=== PATIENT | male | born 1940 | race African-American/Black ===

== ENCOUNTER 2023-04-15 06:55 | Observation (INO) | payer MEDICARE, SELFPAY ==
--- NOTE | ~2023-04-15 | CT_ITS ---
CT of the Abdomen and Pelvis: Indication: Abdominal pain Technique: 2.5 mm axial scans were obtained through the abdomen and pelvis following intravenous adm inistration of 100 cc of Omnipaque 350. Dose reduction technique was used on this scan by utilizing a utomated exposure control and iterative reconstruction technique. The dose-length product (DLP) was 4 66.83 mGy-cm. Findings: Scans through the lung bases demonstrate small hiatal hernia. The liver, spleen, pancreas, gallbladder, adrenals and kidneys are within normal limits. Infrarenal a bdominal aortic aneurysm measures 4.9 cm in maximum diameter. Left common iliac artery measures 1.9 c m in diameter. Right common iliac artery measures 2.0 cm in diameter.. No lymphadenopathy. No bowel obstruction or bowel wall thickening. There is no evidence to suggest acute appendicitis. Images through the pelvis were performed. Urinary bladder unremarkable. Prostate gland is enlarged. N o ascites. Impression: 4.9 cm infrarenal aortic aneurysm. Enlarged prostate gland. Small hiatal hernia. Reviewed, dictated and finalized at location . Impression: 4.9 cm infrarenal aortic aneurysm. Enlarged prostate gland. Small hiatal hernia.
[2023-04-15 06:59] VITALS: BP 184/80; PULSE 90; RESP 16; TEMP 36.8; O2SAT 94
[2023-04-15 07:30] VITALS: BP 178/61; PULSE 77; RESP 18; O2SAT 100
--- NOTE | 2023-04-15 07:35 | ED.NAVMDI ---
HPI - Nausea/Vomiting/Diarrhea General Chief complaint: Nausea/Vomiting/Diarrhea Stated complaint: vomiting Time Seen by Provider: 04/15/23 07:19 Source: patient and RN notes reviewed Mode of arrival: ambulatory Limitations: no limitations History of Present Illness HPI Narrative: This is an 83 year old male with history of hypertension who presents for evaluation of nausea, vomiting and diarrhea. Patient states yesterday he develop nausea, vomiting and diarrhea. HE reports multiple episodes of emesis. HE also reports mid abdominal pain that started at the same time. He denies fever or chills. HE denies any urinary symptoms. He states this pain does not radiate. He rates his pain 7/10 but he states he does not want any pain medication at this time. Related Data Home Medications Medication Instructions Recorded Confirmed amlodipine 10 mg BYMOUTH DAILY 04/15/23 04/15/23 lisinopril 40 mg tablet 40 mg PO DAILY 04/15/23 04/15/23 Allergies Allergy/AdvReac Type Severity Reaction Status Date / Time No Known Allergies Allergy Verified 04/15/23 15:34 Review of Systems Constitutional: Constitutional: Denies weakness Cardiovascular: Cardiovascular: Denies syncope, Denies rapid heart rate, Denies irregular heart rhythm, Denies leg edema and Denies dyspnea Respiratory: Respiratory: Denies chest congestion, Denies hemoptysis, Denies excessive phlegm production and Denies dyspnea Gastrointestinal: Gastrointestinal: Reports abdominal pain, Denies hematochezia, Reports diarrhea, Reports nausea and Reports vomiting Genitourinary: Genitourinary: Denies hematuria, Denies dysuria, Denies penile discharge and Denies testicular pain Musculoskeletal: Musculoskeletal: Denies joint swelling, Denies loss of height and Denies muscle weakness Neurologic: Reports dizziness, Denies syncope, Denies focal weakness and Denies weakness PMFSH Past Medical History Medical History (Updated 04/15/23 @ 18:01 by Estefany Melendrez MD) Hypertension Surgical History Surgical History (Updated 04/15/23 @ 07:36 by Estefany Melendrez MD) History of surgery on arm Social History Social History Smoking status: Never smoker Alcohol intake: never Substance use: never Lack of Transportation: No Lack of Food: Never True Current Housing: I Have Housing Concerned About Future Housing: No Difficulty Paying Gas/Electric Bills: No Difficulty Paying for Meds: No Currently Unemployed: No Education: Don't Know Difficulty w/ Childcare or Family Care: No Spiritual care concerns: No Exam Const: General: no acute distress and alert Orientation/consciousness: patient oriented x3 Limitations: no limitations HENMT: Face and sinus: normal facial exam Eyes: Pupils: Equal, round and reactive pupils present EOM: EOMs intact bilaterally Chest: Chest palpation & inspection: normal inspection of the chest Resp: Effort & Inspection: normal respiratory effort Auscultation: clear to auscultation bilaterally Cardio: Rate: regular rate Rhythm: regular rhythm Heart sounds: Murmur heart sound present GI: GI Palp: Yes Soft to palpation, Yes Tenderness to palpation present (GI) (RLQ suprapubic), No Guarding due to palpation present (GI) and No Rigid due to palpation Auscultation: normal bowel sounds : General: Yes no CVA tenderness Skin: General skin exam: normal color Rashes: no rashes Wounds: no wounds Neuro: General: patient oriented x3, moves all extremities and CN's II-XI intact bilaterally Extrem: General: normal to inspection Psych: Mental Status: mental status grossly normal Affect: normal affect Attitude: cooperative Course Reevaluation(s) Reevaluation #1: Patient has had multiple episodes of nausea and vomiting despite medication. He has been offered pain medication but repeatedly refused. He is finally agreeable. I discussed that I also recommend admission and he states he does not want to. Date: 04/15/23
[2023-04-15] MEDS: ONDANSETRON INJ 4 MG/2 ML VIAL IV PUSH ×2 (07:57→10:47)
[2023-04-15] MEDS: LACTATED RINGERS 1,000 ML 999 ML IV CONT (07:57)
[2023-04-15 08:16] LABS: Basophils Percent Auto 0.2 % (0.2-1.2); Hematocrit 42.4 % (42.0-52.0); Hemoglobin 14.5 g/dL (14.0-18.0); Immature Granulocyte Absolute 0.02 K/mm3 (0.00-0.031); Immature Granulocyte Percent A 0.2 % (0-0.5); Lymphocytes Absolute Auto 0.52 K/mm3 (0.9-3.2); Lymphocytes Percent Auto 5.8 % (18.3-44.2); Mean Corpuscular HGB Conc 34.2 g/dl (32-36); Mean Corpuscular Hemoglobin 31.5 pg (26-34); Mean Platelet Volume 10.5 fl (7.4-10.4); Monocytes Absolute Auto 0.6 K/mm3 (0.1-0.6); Monocytes Percent Auto 6.5 % (2.6-8.5); Neutrophils Absolute Auto 7.9 K/mm3 (1.3-6.7); Neutrophils Percent Auto 87.3 % (45.5-73.1); Platelet Count Result 292 k/mm3 (150-375); Red Blood Count 4.61 M/mm3 (4.6-6.20); Red Cell Distribution Width 15.4 % (11.5-14.5)
[2023-04-15 09:08] LABS: Alanine Aminotransferase 23 U/L (6-50); Alkaline Phosphatase 75 U/L (38-126); Anion Gap 6 mmol/L (8-16); Aspartate Amino Transferase 35 U/L (17-59); Bilirubin,Total 0.6 mg/dL (0.2-1.3); Blood Urea Nitrogen 19 mg/dL (9-20); Calcium 8.9 mg/dL (8.4-10.2); Carbon Dioxide 28 mmol/L (22-30); Chloride 104 mmol/L (98-107); Estimated CRCL calculation 47 ml/min; Estimated Glomerular Filt Rate > 60; Glucose 110 mg/dL (65-110); Lipase 118 U/L (23-300); Potassium 4.1 mmol/L (3.4-5.0); Sodium 138 mmol/L (137-145)
[2023-04-15 09:10] LABS: Appearance Urine Cloudy (Clear); Bacteria Urine 4+ /hpf; Bilirubin Urine Negative (Negative); Blood Urine 2+ (Negative); Color Urine Yellow (Yellow); Glucose Urine UA Negative (Negative); Ketones Urine Negative (Negative); Leukocyte Esterase Ur 2+ LEU/UL (Negative); Nitrate Urine Negative (Negative); Non Pathogenic Casts 0-2; Protein Urine 1+ mg/dL (Negative); RBC Urine 21-50 /hpf (0-2); Specific Grav Ur 1.016 (1.001-1.035); Squamous Epithelial Cell Urine Occasional /hpf (Few)
[2023-04-15 09:20] LABS: Add Urine Microscopic? YES
[2023-04-15] MEDS: METOCLOPRAMIDE HCL INJ 10 MG/2 ML VIAL IV PUSH (09:28)
[2023-04-15 11:22] VITALS: BP 162/65; PULSE 101; RESP 18; O2SAT 100
[2023-04-15] MEDS: MORPHINE SULFATE (*CRX) 4 MG/ML INJ IV PUSH (12:05)
[2023-04-15 14:00] VITALS: BP 137/63; PULSE 93; RESP 20; O2SAT 96
[2023-04-15] MEDS: SODIUM CHLORIDE 0.9% IV 1,000 ML 125 ML IV CONT ×2 (14:47→23:27)
[2023-04-15 15:17] VITALS: BMI 22.2
--- NOTE | 2023-04-15 15:24 | ADMGEN ---
This patient, Ceferino Hampton, was admitted to [facility] Surg Room 316-02. Patient/family oriented to hospital policies and general routines including ID bracelet, bed and alarms, visiting hours, pain management, procedures, bathroom and other care routines, personal items, smoking policy, room service/diet, and visiting hours. Information on how to activate the Rapid Response Team has been discussed. Patient/Family are encouraged to report perceived risks to care and to ask questions if they do not understand what they are told or what they should do. Report from A[place]ley in ER.
[2023-04-15 16:01] VITALS: BP 129/53; PULSE 73; RESP 16; TEMP 37.3; O2SAT 97
[2023-04-15 21:29] VITALS: BP 161/62; PULSE 74; RESP 14; TEMP 36.8; O2SAT 96
--- NOTE | 2023-04-15 21:41 | PM.IMHP ---
H&P: HPI History of Present Illness Date/Time: 04/15/23 21:41 Chief Complaint: Nausea vomiting diarrhea Narrative: This is an 83-year-old male patient who has a history of hypertension. The patient came in to be evaluated with nausea vomiting and diarrhea. The patient stated a couple weeks ago he had diarrhea in it. Today came back yesterday. He has also had severe abdominal pain. He denies any fever chills. He denies any urinary symptoms. The pain does not radiate anywhere but he was rating his pain 7/10. CT of the abdomen and pelvis was read as the following.4.9 cm infrarenal aortic aneurysm. Enlarged prostate gland. Small hiatal hernia. Patient was found to be positive for UTI. The patient was given Rocephin. He was also given IV fluids. His mucous membranes are moist. When I system he stated he was feeling much better. The patient is being admitted for observation status on the date of service of 04/15/2023. Review of Systems Review of Systems: All systems reviewed & are unremarkable except as noted in HPI and below Constitutional: Constitutional: Reports as per HPI and Reports no additional constitutional complaints Eyes: Eyes: Reports as per HPI and Reports no additional eye complaints ENT: Reports system reviewed and no additional complaints, except as documented and Reports Normal hearing present Cardiovascular: Cardiovascular: Reports no additional cardiovascular complaints Respiratory: Respiratory: Reports no additional respiratory complaints and Reports no additional respiratory complaints Gastrointestinal: Gastrointestinal: Reports as per HPI and Reports no additional gastrointestinal complaints Musculoskeletal: Musculoskeletal: Reports no additional musculoskeletal complaints Integumentary/Breasts: Skin/Breast: Reports system reviewed and no additional complaints, except as docu and Reports as per HPI Neurologic: Reports system reviewed and no additional complaints, except as documented, Reports as per HPI and Reports Normal hearing present Psychiatric: Psychiatric: Reports no additional psychiatric complaints and Reports as per HPI Endocrine: Endocrine: Reports no additional endocrine complaints Hematologic/Lymphatic: Hematologic/Lymphatic: Reports no additional hematologic/lymphatic complaints Allergic/Immunologic: Allergic/Immunologic: Reports no additional allergic/immunologic complaints [facility] Past Medical History Medical History (Updated 04/15/23 @ 23:28 by Светлана Davila NP) Abdominal aneurysm CVA (cerebral vascular accident) Hypertension Surgical History Surgical History History of surgery on arm Family History Family History (Updated 04/15/23 @ 23:25 by Светлана Davila NP) Other Hypertension Social History Social History (Updated 04/15/23 @ 23:25 by Светлана Davila NP) Social History: The patient lives with his cousins. 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 Code status full code Smoking status: Never smoker Alcohol intake: never Substance use: never Lack of Transportation: No Lack of Food: Never True Current Housing: I Have Housing Concerned About Future Housing: No Difficulty Paying Gas/Electric Bills: No Difficulty Paying for Meds: No Currently Unemployed: No Education: Don't Know Difficulty w/ Childcare or Family Care: No Spiritual care concerns: No Meds Home Medications and Allergies Home Medications Medication Instructions Recorded Confirmed Type amlodipine 10 mg BYMOUTH DAILY 04/15/23 04/15/23 History lisinopril 40 mg tablet 40 mg PO DAILY 04/15/23 04/15/23 History Allergies Allergy/AdvReac Type Severity Reaction Status Date / Time No Known Allergies Allergy Verified 04/15/23 15:34 Vital Signs Vital Signs - 24 hr 04/15/23 06:59 04/15/23 07:30 04/15/23 11:22 Temperature 36.8 C Pulse Rate 90 77 101 H Respira
[2023-04-16 05:56] VITALS: BP 162/53; PULSE 57; RESP 12; TEMP 37.1; O2SAT 97
[2023-04-16 06:42] LABS: Basophils Percent Auto 0.2 % (0.2-1.2); Eosinophils Percent Auto 0.1 % (0-4.4); Hematocrit 33.8 % (42.0-52.0); Hemoglobin 11.3 g/dL (14.0-18.0); Immature Granulocyte Absolute 0.07 K/mm3 (0.00-0.031); Immature Granulocyte Percent A 0.5 % (0-0.5); Lymphocytes Absolute Auto 0.77 K/mm3 (0.9-3.2); Lymphocytes Percent Auto 5.5 % (18.3-44.2); Mean Corpuscular HGB Conc 33.4 g/dl (32-36); Mean Corpuscular Hemoglobin 31.7 pg (26-34); Mean Corpuscular Volume 94.9 fl (80-100); Mean Platelet Volume 9.4 fl (7.4-10.4); Monocytes Absolute Auto 1.1 K/mm3 (0.1-0.6); Neutrophils Absolute Auto 11.9 K/mm3 (1.3-6.7); Neutrophils Percent Auto 85.7 % (45.5-73.1); Platelet Count Result 157 k/mm3 (150-375); Red Blood Count 3.56 M/mm3 (4.6-6.20); Red Cell Distribution Width 15.8 % (11.5-14.5); White Blood Count 13.9 K/mm3 (4.5-10.0)
[2023-04-16 06:58] LABS: Alanine Aminotransferase 17 U/L (6-50); Alkaline Phosphatase 52 U/L (38-126); Anion Gap 5 mmol/L (8-16); Aspartate Amino Transferase 31 U/L (17-59); Bilirubin,Total 0.9 mg/dL (0.2-1.3); Blood Urea Nitrogen 17 mg/dL (9-20); Calcium 7.6 mg/dL (8.4-10.2); Carbon Dioxide 25 mmol/L (22-30); Chloride 109 mmol/L (98-107); Estimated CRCL calculation 46 ml/min; Estimated Glomerular Filt Rate > 60; Glucose 92 mg/dL (65-110); Potassium 3.9 mmol/L (3.4-5.0); Sodium 139 mmol/L (137-145)
[2023-04-16] MEDS: SODIUM CHLORIDE 0.9% IV 1,000 ML 125 ML IV CONT (07:37)
[2023-04-16] MEDS: FAMOTIDINE 20 MG/2 ML VIAL IV PUSH (09:06)
[2023-04-16] MEDS: lisinopriL 20 MG TABLET 40 MG PO (09:07)
[2023-04-16] MEDS: amLODIPine BESYLATE 5 MG TABLET 10 MG BY MOUTH (09:07)
[2023-04-16] MEDS: TAMSULOSIN HCL 0.4 MG CAPSULE PO (09:07)
[2023-04-16 10:01] VITALS: O2SAT 97
--- NOTE | 2023-04-16 12:05 | PM.DS ---
DS: Admitting Diagnosis Discharge Date April 16, 2023 Admitting Diagnosis UTI DS: Discharge Diagnosis Discharge Diagnosis (1) Intractable nausea and vomiting: Code(s): R11.2 - Nausea with vomiting, unspecified Status: Acute Assessment and Plan: The patient was started on Pepcid. The patient stated that he feels much better now. The patient was started on IV fluids and given antibiotics for UTI. (2) Acute UTI: Code(s): N39.0 - Urinary tract infection, site not specified Status: Acute Assessment and Plan: Blood and urine cultures are pending. Continue with Rocephin. (3) Hypertension: Code(s): I10 - Essential (primary) hypertension Status: Acute Assessment and Plan: Continue with amlodipine and lisinopril. Continue to monitor renal functions. (4) CVA (cerebral vascular accident): Code(s): I63.9 - Cerebral infarction, unspecified Status: Acute Assessment and Plan: The patient stated that the only residual he has difficulty speaking at times and has some ataxia. (5) Abdominal aneurysm: Code(s): I71.40 - Abdominal aortic aneurysm, without rupture, unspecified Status: Acute Assessment and Plan: 4.9 cm infrarenal aortic aneurysm. Enlarged prostate gland. Small hiatal hernia. The patient was started on Flomax. I explained to the patient that he will need to follow-up outpatient with either his primary care doctor or with the vascular surgeon to monitor that aortic aneurysm. DS: Summary Hospital Course Hospital Course: Admitted for nausea and vomiting secondary to UTI. Much better now. Oral antibiotics on discharge. Time Spent with Patient Time attestation: Total time spent providing and/or coordinating discharge services: Exam Const: General: cooperative, healthy appearing, comfortable, no acute distress, well developed, awake, Physically active, average body habitus and well nourished Nutritional Appearance: average body habitus and well nourished Orientation/consciousness: oriented to person, oriented to place, oriented to time and patient oriented x3 Limitations: no limitations HENMT: Head: normal to inspection, No palpable skull fracture present, normocephalic and atraumatic Ears: hearing grossly normal bilaterally and external ears normal Face/Nose/Sinus: Normal external nose present and Normal nares present Eyes: General: appearance normal, both eyes and all related structures Alignment and Position: alignment normal Periorbital: periorbital findings normal Eyelids: eyelids normal Sclera: sclerae normal Pupils: Equal, round and reactive pupils present EOM: EOMs intact bilaterally Neck: Neck: normal visual inspection, full ROM, no lymphadenopathy, trachea midline and supple Chest: Chest palpation & inspection: normal inspection of the chest Resp: Effort & Inspection: normal respiratory effort Auscultation: clear to auscultation bilaterally Cardio: Palpation: normal PMI Rate: regular rate Rhythm: regular rhythm Heart sounds: S1 normal heart sound present and S2 normal heart sound present Peripheral pulses: Peripheral pulses 2+ throughout GI: Inspection: normal to inspection Auscultation: normal bowel sounds Rectal Exam: deferred Back/Spine/Pelvis: Cervical Spine: cervical ROM normal Skin: General skin exam: normal color Lesions: no lesions Rashes: no rashes Trauma: no lacerations or abrasions Wounds: no wounds Hair: normal Nails: normal Neuro: General: oriented to person, oriented to place, oriented to time and patient oriented x3 Cranial nerves: Yes Equal, round and reactive pupils present and Yes Normal hearing present Cognition (Neuro): normal cognition Speech: normal speech Motor exam (neuro): 5/5 motor strength present throughout Sensory Exam: normal sensation Extrem: General: normal to inspection Right upper extremity: normal to inspection and shoulder/upper arm Left upper extremity: normal
== END 2023-04-16 13:35 | disposition home or self-care (01) ==
LOC: ANHED 08:03 → ANH3MEDSUR 14:26
PROVIDERS: Admitting Provider Chiropractor; Emergency Provider General Practice; Visit Provider Chiropractor
DX: R11.2 Nausea with vomiting, unspecified (principal); N39.0 Urinary tract infection, site not specified; B96.20 Unspecified Escherichia coli [E. coli] as the cause of diseases classified elsewhere; I69.393 Ataxia following cerebral infarction; I69.328 Other speech and language deficits following cerebral infarction; I10 Essential (primary) hypertension; I71.43 Infrarenal abdominal aortic aneurysm, without rupture; N40.0 Benign prostatic hyperplasia without lower urinary tract symptoms; K44.9 Diaphragmatic hernia without obstruction or gangrene; Z79.899 Other long term (current) drug therapy; Z82.49 Family history of ischemic heart disease and other diseases of the circulatory system
CPT/HCPCS: 36415; 74177; 80053; 81001; 83605; 83690; 85025; 87040; 87077; 87086; 87186; 96361; 96365; 96375; 96376; 99285; A9270; G0378; J0696; J2270; J2405; J2765; J7030; J7120; Q9967

== ENCOUNTER 2024-07-24 16:11 | Emergency (ER) | payer OTHER, SELFPAY ==
--- NOTE | 2024-07-24 16:18 | ED_ITS ---
HPI - General Adult General Chief complaint: Urogenital-Male Stated complaint: UTI/FALL Time Seen by Provider: 07/24/24 16:19 Source: patient Mode of arrival: ambulatory Limitations: no limitations History of Present Illness HPI narrative: 84-year-old male patient presents to the [facility] with complaints of right knee pain after fall 2 days ago and concerns for urinary tract infection symptoms. Caregiver states that earlier this year he was hospitalized for a UTI and admitted to the hospital for IV antibiotics. Patient states he has been having issues starting his stream and is not able to provide a specimen at this time. Patient did urinate right before they left the house to come to the [facility] but cannot say whether not he has fully emptied his bladder. Patient states he has not had his prostate checked in over 35 years. Patient states he has been feeling more weaker than normal as well as has had some lower back pain. Denies fevers body aches or chills at this time. Caregiver states that he is confused at times. Related Data Home Medications Medication Instructions Recorded Confirmed amlodipine 10 mg BYMOUTH DAILY 04/15/23 04/15/23 lisinopril 40 mg tablet 40 mg PO DAILY 04/15/23 04/15/23 Allergies Allergy/AdvReac Type Severity Reaction Status Date / Time No Known Allergies Allergy Verified 07/24/24 16:51 Review of Systems Review of Systems: CONSTITUTIONAL: Denies fever, chills, or sweats. EYES: Denies visual changes, redness, or discharge. ENT: Denies rhinorrhea, congestion, sore throat, or otalgia. CARDIOVASCULAR: Denies chest pain, palpitations, or edema. RESPIRATORY: Denies cough or dyspnea. GASTROINTESTINAL: Denies abdominal pain, nausea, vomiting, or diarrhea. Positive low back pain GENITOURINARY: positive dysuria positive hematuria. SKIN: Denies rash or itching. MUSCULOSKELETAL: Denies back pain, joint pain, or myalgia. NEUROLOGIC: Denies headache, numbness, positive weakness. positive confusion PSYCHIATRIC: Denies anxiety or depression. [facility] Past Medical History Medical History Abdominal aneurysm CVA (cerebral vascular accident) Hypertension Surgical History Surgical History History of surgery on arm Family History Family History Other Hypertension Social History Social History Social History: The patient lives with his cousins. 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 Code status full code Smoking status: Never smoker Alcohol intake: never Substance use: never Lack of Transportation: No Lack of Food: Never True Current Housing: I Have Housing Concerned About Future Housing: No Difficulty Paying Gas/Electric Bills: No Difficulty Paying for Meds: No Currently Unemployed: No Education: Don't Know Difficulty w/ Childcare or Family Care: No Spiritual care concerns: No Comments At the time of my signature I agree with nursing past medical history, surgical, social, and family history. There is no relevant family history pertinent to the presenting complaint. Exam Narrative: GENERAL: Well-appearing, well-nourished, and in no acute distress. HEAD: Normocephalic, atraumatic. EYES: PERRLA and EOMI. ENT: Nares clear, no rhinorrhea or epistaxis. Mucous membranes moist. NECK: Supple. No lymphadenopathy CHEST: Clear to auscultation. No respiratory distress. HEART: Regular rate and rhythm. No murmur heard. Normal peripheral pulses. ABDOMEN: Soft, flat, nondistended. No guarding, rebound tenderness, or rigid. No pulsatilla masses. Bowel sounds present in all four quadrants. No organomegaly. Negative Franks?s sign. periumbicial tenderness. No Supra public tenderness or distension. Good femoral pulses bilaterally. No hernia noted. No scars or surface trauma. bilateral CVA tenderness on percussion EXTREMITIES: Patient is able to bear weight and ambulate with a walker. No surface trauma, STS, or obvious effusion. No overlying erythema or warmth. The R knee is without obvious asymmetry or deformity when compared to the L knee. Patient is able to do deep knee bend with symmetry, fully extend knee, internal and external rotation. No tenderness to palpation of the patella, no effusion or ballottement. there is bruising present to the medial side of the right knee.No tenderness over the infrapatellar tendon. No tenderness over the medial or lateral joint lone ot the medial or lateral tibial plateaus. no tenderness over the proximal fibular head. no tenderness, fullness, or mass of the popliteal fossa. No quadriceps tenderness. No laxity of the ACL, PCL, MCL, or LCL. No collateral ligament laxity to valgus or vargus stress. Negative prasanth/drawer sign. Negative Subhash. Negative Apley compression and/or distraction. Distal motor and neurovascular status intact. SKIN: Warm, dry, no rash. NEURO: No focal deficits. Alert and oriented x3. Course Course Level of Care: Express Care Visit Vital Signs Vital signs: Vital Signs Temperature 36.9 C 07/24/24 16:27 Pulse Rate 70 07/24/24 16:27 Respiratory Rate 16 07/24/24 16:27 Blood Pressure 139/61 07/24/24 16:27 Pulse Oximetry 98 07/24/24 16:27 Temperature 36.9 C 07/24/24 16:27 Pulse Rate 70 07/24/24 16:27 Respiratory Rate 16 07/24/24 16:27 Blood Pressure 139/61 07/24/24 16:27 Pulse Oximetry 98 07/24/24 16:27 Vital signs reviewed. The patient has been informed that they may have pre-hypertension or Hypertension based on a BP reading in the department. I recommend that the patient call the primary care provider listed on their discharge instructions or a physician of their choice this week to arrange follow up for further evaluation of possible pre-hypertension or Hypertension Transfer Transfered to: [place] Transportation: Other ( Private vehicle with caregiver) Transfer rationale: further workup for possible urosepsis Accepting physician: Dr. Sparrow Medical Decision Making [facility] Narrative Medical decision making narrative: Given patient's age, history of urosepsis in the past as well as he is not able to provide us a specimen today and the increase in weakness and a fall 2 days ago I think that we need to have him better assessed in the ER where they were able to do cultures and blood work as well as have the ability to provide IV antibiotics. Patient and caregiver are aware and agree to this plan of care. Caregiver has opted for patient be seen at [place] [facility]. Differential Diagnosis Differential Diagnosis: Differential diagnosis: Uncomplicated lower UTI, uncomplicated UTI, polynephritis, penile trauma,balanoposthitis, phimosis, paraphimosis, testicular torsion, epididymitis, prostatitis, varicocele, spermatocele, hydrocele, hernia. Vital Signs Vital Signs: Vital Signs Temperature 36.9 C 07/24/24 16:27 Pulse Rate 70 07/24/24 16:27 Respiratory Rate 16 07/24/24 16:27 Blood Pressure 139/61 07/24/24 16:27 Pulse Oximetry 98 07/24/24 16:27 Temperature 36.9 C 07/24/24 16:27 Pulse Rate 70 07/24/24 16:27 Respiratory Rate 16 07/24/24 16:27 Blood Pressure 139/61 07/24/24 16:27 Pulse Oximetry 98 07/24/24 16:27 Critical Care Time Critical Care Time Critical Care Time: No Discharge Plan Discharge Clinical Impression: Acute urinary retention, Weakness Patient Disposition: Acute Care Hospital Condition: Stable Instructions: Antibiotic Form Prescriptions: No Action lisinopril 40 mg Tablet 40 mg PO DAILY amlodipine 10 mg BYMOUTH DAILY cefdinir 300 mg capsule 300 mg PO Q12H Qty: 10 0RF Follow-up/Referrals: Nj Dill DO [Primary Care Provider] - Time of Disposition: 16:55
[2024-07-24 16:27] VITALS: BP 139/61; PULSE 70; RESP 16; TEMP 36.9; O2SAT 98
== END 2024-07-24 17:12 | disposition short-term general hospital (02) ==
PROVIDERS: Emergency Provider Nurse Practitioner Family; PCP Internal Medicine
DX: R33.9 Retention of urine, unspecified (principal); R53.1 Weakness; I10 Essential (primary) hypertension; Z86.73 Personal history of transient ischemic attack (TIA), and cerebral infarction without residual deficits
CPT/HCPCS: 99211; 99212; G0463

== ENCOUNTER 2024-07-24 17:40 | Emergency (ER) | payer OTHER, SELFPAY ==
[2024-07-24 17:50] VITALS: BP 167/64; PULSE 73; RESP 20; TEMP 36.8; O2SAT 96
--- NOTE | 2024-07-24 21:25 | PC.NURSE ---
Patient states he is going to the [place] [facility] instead of waiting here. Patient ambulated out of ER via [facility]
== END 2024-07-24 21:25 | disposition left against medical advice (07) ==
LOC: ANHED 21:26
PROVIDERS: PCP Internal Medicine
DX: R35.0 Frequency of micturition (principal)
CPT/HCPCS: 99199

== ENCOUNTER 2024-08-11 12:32 | Outpatient (CLI) | payer OTHER, SELFPAY ==
[2024-08-11 18:41] LABS: Hematocrit 39.7 % (42.0-52.0); Hemoglobin 12.7 g/dL (14.0-18.0); Immature Granulocyte Absolute 0.01 K/mm3 (0.00-0.031); Immature Granulocyte Percent A 0.2 % (0-0.5); Lymphocytes Absolute Auto 1.04 K/mm3 (0.9-3.2); Lymphocytes Percent Auto 25.9 % (18.3-44.2); Mean Corpuscular Hemoglobin 31.1 pg (26-34); Mean Corpuscular Volume 97.1 fl (80-100); Mean Platelet Volume 9.6 fl (7.4-10.4); Monocytes Absolute Auto 0.6 K/mm3 (0.1-0.6); Monocytes Percent Auto 14.5 % (2.6-8.5); Neutrophils Absolute Auto 2.3 K/mm3 (1.3-6.7); Neutrophils Percent Auto 57.4 % (45.5-73.1); Platelet Count Result 257 k/mm3 (150-375); Red Blood Count 4.09 M/mm3 (4.6-6.20); Red Cell Distribution Width 13.5 % (11.5-14.5)
[2024-08-11 19:31] LABS: Vitamin D 25 Hydroxy 27.3 ng/mL
[2024-08-11 19:40] LABS: Alanine Aminotransferase 20 U/L (6-50); Albumin Level 3.9 g/dL (3.5-5.1); Alkaline Phosphatase 78 U/L (38-126); Anion Gap 4 mmol/L (4-12); Aspartate Amino Transferase 73 U/L (17-59); Bilirubin,Total 0.6 mg/dL (0.2-1.3); Blood Urea Nitrogen 23 mg/dL (9-20); Calcium 8.7 mg/dL (8.4-10.2); Carbon Dioxide 27 mmol/L (22-30); Chloride 106 mmol/L (98-107); Cholesterol 157 mg/dL (0-200); Estimated Glomerular Filt Rate > 60; Glucose 70 mg/dL (65-110); HDL Direct 59 mg/dL; Potassium 4.8 mmol/L (3.4-5.0); Sodium 137 mmol/L (137-145); Triglycerides 118 mg/dL (<150)
[2024-08-11 19:53] LABS: LDL Cholesterol Direct 53 mg/dL
[2024-08-11 20:13] LABS: Prostate Specific Antigen 3.2 ng/mL (< OR = 4.0); Thyroid Stimulating Hormone 0.715 uIU/mL (0.465-4.680)
[2024-08-11 23:56] LABS: Hemoglobin A1C 5.4 % (<5.7)
== END 2024-08-11 12:33 | disposition home or self-care (01) ==
LOC: ANHGOSHLAB 12:34
PROVIDERS: PCP Internal Medicine; Visit Provider Clinical Nurse Specialist
DX: I63.9 Cerebral infarction, unspecified (principal); I71.40 Abdominal aortic aneurysm, without rupture, unspecified; N40.0 Benign prostatic hyperplasia without lower urinary tract symptoms; I10 Essential (primary) hypertension; E78.5 Hyperlipidemia, unspecified; E55.9 Vitamin D deficiency, unspecified; R73.9 Hyperglycemia, unspecified
CPT/HCPCS: 36415; 80053; 80061; 82306; 82607; 83036; 84153; 84443; 85025

== ENCOUNTER 2024-08-13 09:29 | Outpatient (CLI) | payer OTHER, SELFPAY ==
--- NOTE | ~2024-08-13 | US_ITS ---
US aorta DATE: 08/13/2024 10:13 INDICATION: Abdominal aortic aneurysm TECHNIQUE: Real-time and color flow imaging of the abdominal aorta COMPARISON: 04/15/2023 CT abdomen pelvis without FINDINGS: There is an up to 4.7 cm saccular aneurysm of the infrarenal abdominal aorta. The proximal abdominal aorta is obscured. There is ectasia of the common iliac arteries, measuring up to approximately 1.8 cm maximal dimension . IMPRESSION: 4.7 cm saccular aneurysm of the infrarenal abdominal aorta Reviewed, dictated and finalized at [facility]. Reviewed, dictated and finalized at [facility]. [employer]
== END 2024-08-13 09:30 | disposition home or self-care (01) ==
LOC: MICIMG 09:30
PROVIDERS: PCP Internal Medicine; Visit Provider Clinical Nurse Specialist
DX: I71.40 Abdominal aortic aneurysm, without rupture, unspecified (principal)
CPT/HCPCS: 76775

== ENCOUNTER 2024-08-16 12:56 | Outpatient (CLI) | payer OTHER, SELFPAY | END 2024-08-16 12:57 | disposition home or self-care (01) | LOC: ANHAUDIO 12:57 | PROVIDERS: PCP Internal Medicine; Visit Provider Clinical Nurse Specialist | DX: H90.42 Sensorineural hearing loss, unilateral, left ear, with unrestricted hearing on the contralateral side (principal); H90.71 Mixed conductive and sensorineural hearing loss, unilateral, right ear, with unrestricted hearing on the contralateral side | CPT/HCPCS: 92557; 92567 ==

== ENCOUNTER 2024-08-25 10:01 | Outpatient (RCR) | payer OTHER, SELFPAY ==
--- NOTE | 2024-08-25 14:13 | PTOPEVAL1 ---
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 He states he has multiple rounds of therapy and has been IND with getting in/out of bed and getting up/down the stairs in his home. He states he can usually get around his home without assistance but states he is unstable when he is walking. Reported Pain Level Pain Score 0: Self Report Assessment PT Clinical Summary Pt presents to therapy today for his initial evaluation with a history of CVA and a progressing report of unsteadiness on his feet. Today he demonstrates scores during the Tinetti, 5xSTS, and 2min walk distance that all place him at an increased risks for falls. He demonstrates decreased functional mobility that has gotten progressively worse over the last months to years. Skilled therapy are indicated to improve strength , balance scores, gait speed, and to improve overall functional mobility. Plan of Care Interventions Gait Training,Manual Therapy,Neuro Re-education, Patient/Caregiver Educati,Therapeutic Activities, Therapeutic Exercise PT Services Indicated Yes Treatment Frequency and 2x/wk for 10 visits Duration These treatments will address the objective and functional deficits as defined above. The patient will be advanced safely and appropriately in order for the patient to progress towards his/her prior level of function. Additional exercises will be introduced and as well as a comprehensive home exercise program upon discharge, if needed, ?to ensure carryover of functional gains achieved in the clinic. This treatment plan has been reviewed and agreement upon by the patient.
--- NOTE | 2024-10-17 08:35 | PTOPDC ---
Assessment and note entered by Mark Valdez, PT, DPT Evaluation Information Assessment Status Discharge - Pt Not Present Diagnosis CVA, unsteadiness on feet Subjective Information Called and spoke with Lenora, a caregiver for Ceferino. She states [facility] and does not intend on returning here . Assessment PT Clinical Summary Pt was evaluated on 08/25/24 and did not complete any follow up treatment. Will be d/c'ed at this time.
== END 2024-10-17 10:40 | disposition home or self-care (01) ==
LOC: ANHGOSHPT 10:01
PROVIDERS: PCP Internal Medicine; Visit Provider Clinical Nurse Specialist
DX: I63.9 Cerebral infarction, unspecified (principal); R26.81 Unsteadiness on feet
CPT/HCPCS: 97110; 97161

== ENCOUNTER 2025-06-22 19:59 | Inpatient (IN) | payer MEDICARE, SELFPAY ==
[2025-06-22] VITALS (9 sets, daily range): BP systolic 121–141; BP diastolic 54–69; PULSE 81–97; RESP 15–22; TEMP 37.9; O2SAT 93–100
--- NOTE | ~2025-06-22 | XR_ITS ---
Examination: XR chest 1V portable Clinical History: stroke work up; hypoxia for ems Comparison: None Technique: Portable AP Findings: Heart size mildly enlarged. Low lung volumes. Elevated right hemidiaphragm, associated basilar atelectasis. Mild left basilar atelectasis. No acute bony abnormality. IMPRESSION: 1. No acute cardiopulmonary findings given portable technique. Reviewed, dictated and finalized at location R.
--- NOTE | ~2025-06-22 | CT_ITS ---
EXAMINATION: CTA chest PE abdomen pel DATE: 06/22/2025 22:19 INDICATION: Low back pain. TECHNIQUE: Computed tomography angiography (CTA) of the chest was performed with 100 mL Omnipaque-350 intravenous contrast timed to evaluate the pulmonary arteries. Coronal maximum intensity projection 3D-reconstructions were created by the technologist. Computed tomography (CT) of the abdomen and pelvis was performed with intravenous contrast. Automated exposure control and iterative reconstruction technique were employed. The dose-length product was 900.84 mGy-cm. COMPARISON: CT abdomen and pelvis 04/15/2023 FINDINGS: CTA chest: The lungs demonstrate mild atelectasis. No pleural effusion. Cardiomegaly is noted. There are coronary artery calcifications. There is a trace pericardial effusion. There is no pulmonary embolus. There is a small sliding hiatal hernia. There is severe cervical and thoracic spondylosis. CT abdomen and pelvis: There are cysts in the liver measuring up to 6 mm . The gallbladder, spleen, pancreas, and adrenal glands are normal. There are cysts in the kidneys measuring up to 2.2 cm on the left. There is a 4.9 cm fusiform infrarenal aortic aneurysm. 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 The prostate is moderately enlarged. There are bilateral inguinal hernias containing fat. There is diverticulosis of the colon without evidence of diverticulitis. There are no dilated loops of bowel. The appendix is normal. There are no pathologically enlarged lymph nodes. There is no free intraperitoneal fluid. There is severe lumbar spondylosis. IMPRESSION: 1. No pulmonary embolus. 2. Small sliding hiatal hernia. 3. Stable 4.9 cm fusiform infrarenal aortic aneurysm. Reviewed, dictated and finalized at location E.
--- NOTE | ~2025-06-22 | MR_ITS ---
EXAMINATION: MR brain/brain stem wo/w con DATE: 06/24/2025 09:08 INDICATION: Weakness. TECHNIQUE: Magnetic resonance imaging (MRI) of the brain and brainstem was performed without and with 13 mL MultiHance intravenous contrast. COMPARISON: Head CT 06/22/2025 FINDINGS: There are scattered old blood products in the brain including in the cerebrum, cerebellum, brainstem, and lateral ventricles. There are scattered areas of nonspecific increased T2-weighted signal intensity in the cerebral white matter and antwan. There is chronic encephalomalacia in left thalamus and the right basal ganglia. The ventricles are normal in size. The orbits are normal. There is mild mucosal thickening in the ethmoid sinuses. There is a right otomastoid effusion. IMPRESSION: 1. 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 2. Scattered foci of old hemorrhage in the brain. 3. Moderate nonspecific cerebral white matter disease and pontine disease, which likely represents chronic small vessel ischemic disease. Reviewed, dictated and finalized at location E. IMPRESSION: 1. Chronic encephalomalacia involving the left thalamus and right basal ganglia . 2. Scattered foci of old hemorrhage in the brain. 3. Moderate nonspecific cerebral white matter disease and pontine disease, whic h likely represents chronic small vessel ischemic disease.
--- NOTE | ~2025-06-22 | CT_ITS ---
EXAMINATION: CT brain wo con DATE: 06/22/2025 20:18 INDICATION: Blurred vision, dizziness and paresthesias TECHNIQUE: Computed tomography (CT) of the head was performed without intravenous contrast. Sagittal and coronal reconstructions were performed. The mA was adjusted according to patient size. Iterative reconstruction technique was employed. The dose-length product was 1513.33 mGy-cm. COMPARISON: None FINDINGS: No acute intracranial hemorrhage, acute infarction or abnormal extra axial fluid collection. Small old lacunar infarct at the right basal ganglia. There is moderate scattered white matter hypoattenuation consistent with chronic small vessel ischemic disease. Symmetric prominence of the sulci consistent with mild age-appropriate diffuse cerebral volume loss. Ventricles are normal and symmetric. No mass/mass effect. Right mastoid is hypopneumatized with a right otomastoiditis effusion. The orbits, paranasal sinuses and left mastoid air cells are normal. Intracranial calcified cerebral atherosclerosis is noted. IMPRESSION: 1. 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 No acute intracranial process. 2. Age-related changes including mild diffuse volume loss and moderate scattered white matter T2 hypoattenuation consistent with chronic small vessel ischemic disease. 3. Right otomastoiditis effusion. Reviewed, dictated and finalized at location A. IMPRESSION: 1. 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 No acute intracranial proces s. 2. Age-related changes including mild diffuse volume loss and moderate scattere d white matter T2 hypoattenuation consistent with chronic small vessel ischemic disease. 3. Right otomastoiditis effusion.
--- NOTE | ~2025-06-22 | CT_ITS ---
CTA NECK, CTA HEAD Clinical History: episode blurred vision, dizziness; paresthesias Comparison: None TECHNIQUE: Helical images thoracic inlet to vertex IV contrast information not listed in PACS Coronal, sagittal reformats. Multi planar MIPS CT images acquired with automatic exposure control for dose reduction DLP: 986 mGy-cm Findings: NASCET Criteria utilized CTA NECK Aortic arch: No aneurysm or dissection. Great vessel origins: No stenosis. CCAs: No stenosis. Cervical ICAs: Bulb calcifications but no stenosis. Vertebral Arteries: Patent. Lung Apices: Clear. Thyroid: Unremarkable. Nodes: No enlarged nodes. Bones: No acute bony abnormality. CTA HEAD: Aneurysms: None. Intracranial ICAs: Patent, unremarkable. ACAs and their distal branches: Patent, unremarkable. A-Comm: Not definitely identified. MCAs and their distal branches: Patent, unremarkable. Basilar artery: Patent, unremarkable. gaming commissioner and their distal branches: Patent. Left P1 diminutive; predominant origin P-comm supply. P-Comms: Identified. 2 right-sided arteries. IMPRESSION: CTA NECK: 1. No acute findings. CTA HEAD: 1. No acute findings. Reviewed, dictated and finalized at location R.
--- NOTE | ~2025-06-22 | US_ITS ---
EXAMINATION: US venous doppler [facility], 06/23/2025 9:08 CDT HISTORY: Y COMPARISON: None Technique: Spence-scale and color Doppler images were attempted of the lower saphenofemoral junction, common femoral vein,superficial femoral vein, proximal deep femoral vein, proximal deep femoral vein, popliteal vein and posterior tibial veins. Findings: Deep Venous System:Normal flow, augmentation and compressibility. No echogenic thrombus identified. Superficial Venous SystemNo superficial thrombophlebitis. Soft tissues: Soft tissues are unremarkable. Impression: Negative for DVT. Reviewed, dictated and finalized at location P. Impression: Negative for DVT.
--- NOTE | 2025-06-22 20:02 | ECG_ITS ---
Test Date: 2025-06-22 20:31:04 Measurements Intervals [place] Rate: 93 P: 26 NE: 213 QRS: -25 QRSD: 92 T: 114 QT: 319 QTc: 398 Interpretive Statements SINUS RHYTHM WITH FIRST DEGREE AV BLOCK LEFT VENTRICULAR HYPERTROPHY AND ST-T CHANGE CONSIDER ANTERIOR INFARCT, AGE INDETERMINATE INFERIOR INFARCT, AGE INDETERMINATE BORDERLINE ST-T WAVE ABNORMALITY- ANTEROLATERAL LEADS BASELINE ARTIFACT- I, II, AVR, AVL, AVF, V1 ABNORMAL ECG No previous ECG available for comparison Electronically Signed On 06-23-2025 06:16:15 CDT by Obed uD D.O.
--- NOTE | 2025-06-22 20:03 | ED.NEUROSD ---
HPI - Neuro Symptoms/Deficit General Chief Complaint: Suspected CVA Stated Complaint: dizzy, vomiting, blurred vision, slurred Time Seen by Provider: 06/22/25 20:02 Source: patient and EMS Mode of arrival: EMS Limitations: no limitations History of Present Illness HPI Narrative: Patient presents with report of blurred vision in both eyes and left facial droop. Family was concerned that he was having slurred speech as well. He felt like he was stiff in all of his extremities, unable to move them x4. Symptoms started at 1900. Associated with vomiting and chest pain. Patient states he is on anticoagulation and thinks that the names of various anticoagulation medications that are stated sound familiar although he does not know which and none are seen on his medication list both in the EMR and on the paperwork he has with him. Family later presents and they had been confused was taking his blood pressure medication with blood thinners. His medication list on some documentation lists 81 mg aspirin but he states he does not take this and instead takes a fair amount of acetaminophen for back pain which he attributes to aging. EMS noted that his blood pressure was 220/80 followed by 200/60 and then had normalized at 130/60 the time of arrival the emergency department. Symptoms resolved en route/upon arrival. He notes he had a stroke 6 years ago and his symptoms seemed similar to that presentation. Reports some residual deficits of some lingering weakness on the right , arm and leg after first stroke. BG for EMS was 111mg/dL. Related Data Home Medications ?Medication ?Instructions ?Recorded ?Confirmed ?Last Taken ?Type amlodipine 10 mg BYMOUTH DAILY 04/15/23 06/23/25 06/22/25 History lisinopril 40 mg tablet 40 mg PO DAILY 04/15/23 06/23/25 06/22/25 History cholecalciferol (vitamin D3) 25 25 mcg PO DAILY 08/11/24 06/23/25 06/22/25 History mcg (1,000 unit) capsule omeprazole 20 mg capsule,delayed 20 mg PO DAILY 08/11/24 06/23/25 06/22/25 History release rosuvastatin 40 mg sprinkle capsule 40 mg PO DAILY 08/11/24 06/23/25 06/22/25 History tamsulosin 0.4 mg capsule 0.4 mg PO DAILY 08/11/24 06/23/25 06/22/25 History Allergies Allergy/AdvReac Type Severity Reaction Status Date / Time No Known Allergies Allergy Verified 06/22/25 21:16 [facility] Past Medical History Medical History BPH (benign prostatic hyperplasia) Chronic GERD Abdominal aneurysm 4.9 cm on imaging 2022 CVA (cerebral vascular accident) 2015. Right sided residual weakness. Hypertension Surgical History Surgical History (Updated 06/23/25 @ 04:55 by Светлана Davila APRN) History of tonsillectomy and adenoidectomy History of surgery on arm Family History Family History (Updated 06/23/25 @ 04:56 by Светлана Davila APRN) Mother Hypertension Social History Social History Social History: The patient lives with his cousins. 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 Receives care through the [facility] Code status full code Smoking status: Never smoker Alcohol intake: never Substance use: never Substance use type: does not use Lack of Transportation: No Lack of Food: Never True Current Housing: I Have Housing Concerned About Future Housing: No Difficulty Paying Gas/Electric Bills: No Difficulty Paying for Meds: No Currently Unemployed: No Education: High School Diploma/GED Difficulty w/ Childcare or Family Care: No Occupation/Education: retired Sexual Orientation (if Verbalized by the Patient): Straight or Heterosexual Spiritual care concerns: No Agree to blood products: Yes Exam Narrative: GENERAL: Well-appearing, well-nourished, and in no acute distress. HEAD: Normocephalic, atraumatic. Mild asymmetry of face with slight loss of nasolabial fold on the left. EYES: Non injected, non icteric. Left eye nasal hemianopia. No gaze palsy. ENT: Nares clear, no rhinorrhea or epistaxis. Gross auditory acuity intact. NECK: Supple. No meningismus. CHEST: Speaking in full sentences. No respiratory distress. HEART: Regular rate and rhythm. . ABDOMEN: Soft, nondistended. No rigidity or guarding. Not peritoneal EXTREMITIES: Normal range of motion. No lower extremity edema. Moving extremities x4. SKIN: Warm, dry, no rash. NEURO: No focal deficits. Alert and oriented. Answering questions although gets his age incorrect (says he is 83 though even family seem adamant that he is 84yo until we confirmed his makes him 85yo). Following commands. No aphasia, mild dysarthria. Mild loss of nasolabial fold. Mild right leg weakness. Initial assessment without ataxia on finger nose finger; on repeat assessment has ataxia on the right assessment x2 but then performs without difficulty. No motor drift in UEs. Slightly weak in R LE. PSYCH: Normal mood and affect. Course Vital Signs Vital signs: Vital Signs Pulse Rate 92 06/22/25 20:24 Respiratory Rate 15 06/22/25 20:24 Blood Pressure 141/54 H 06/22/25 20:24 Pulse Oximetry 97 06/22/25 20:24 Oxygen Delivery Room Air 06/22/25 20:24 Temperature 97.1 F L 06/26/25 13:15 Pulse Rate 70 06/26/25 13:15 Respiratory Rate 18 06/26/25 13:15 Blood Pressure 134/47 L 06/26/25 13:15 Pulse Oximetry 99 06/26/25 13:15 Oxygen Delivery Room Air 06/26/25 10:10 Fraction of Inspired Oxygen 21 06/24/25 22:21 MDM - Neuro Symptoms/Deficit MDM Narrative Medical decision making narrative: This is a 85year old male who presents to the emergency department with concern for possible stroke. Last known well is 1900. The patient is protecting their airway which is patent. An IV is established by nursing staff blood work sent to the lab for evaluation. An EKG will be performed. Accu-Chek was acceptable, 110s. NIHSS was evaluated per below. The patient was transported immediately to CT scan per stroke protocol for evaluation of acute intracranial bleed. Symptoms had resolved upon arrival to the ED so symptoms lasted 50 minutes. NIHSS Level Of consciousness: 0 Month and age: 1 Follows commands: 0 Gaze palsy: 0 Visual bowens: 1 (partial hemianopia) Facial palsy: 1 Left arm motor drift: 0 Right arm motor drift:0 Left leg motor drift: 0 Right leg motor drift: 1 Limb ataxia: 0 Sensation: 0 Aphasia: 0 Dysarthria: 1 Extinction: 0 Total: 5 DIFFERENTIAL DIAGNOSES Considered Stroke (CVA / TIA) mimics including but not limited to: migraines, hypoglycemia, seizures/Abad's paralysis, sepsis/severe infections in patients with prior strokes (e.g. recrudescence), syncope, brain masses, transient global amnesia, panic attack/hyperventilation, and conversion disorders. CT non contrast per stroke protocol shows: No acute process ; discussed with radiologist physician. CTA head/neck negative for acute process. Patient has comorbidities that complexity management. Namely, history of CVA. Chart review performed which demonstrates: prior CVA, prior AAA. Social determinants of health that affect care include: Receives care through [facility]. Labs: He has a leukocytosis and a normocytic anemia. He has had a leukocytosis before but then the most recent labs we have in the EMR showed leukopenia. Anemia has been stable previous. BNP mildly elevated but not to a degree to suggest acute heart failure especially for the reference range of the assay given patient's age. Urine shows possible infection. Urine culture is pending. Patient's previous urine culture from March 2023 which grew E coli that was pansensitive to the antibiotics assessed. Ceftriaxone ordered. On reassessment at 9pm he states all of his symptoms have resolved. He does have some acute on chronic back pain. Takes a fair amount of acetaminophen for this (level added). Has not required surgery for the abdominal aneurysm. [place] ordered for pain. Improving neuro exam more consistent with TIA (cerebral thrombus/embolus without infarct) versus hypertensive emergency now resolved; also reasonable to suspect underlying infection played a role with some recrudescence of his previous stroke symptoms. ABCD2 Risk Score Age greater than or equal to 60: [Yes = 1, No = 0]: 1 Initial SBP greater than or equal to 140 or greater than or equal to DBP >90 [Yes = 1, No = 0]: 1 Clinical features of TIA: [ Unilateral weakness +2, Speech impairment without weakness +1, other symptoms = 0]: 0 Duration of symptoms: [Less than 10 minutes = 0, 10-59 min = 1, greater than or equal to 60 min = 2 ]: 1 Hx of Diabetes [Yes = 1, No = 0]: 0 Total Score : 3 points Per the validation study, 0-3 points low risk confers a 2-day stroke risk of 1.0% and a 7-day stroke risk of 1.2% and a 90-day stroke risk of 3.1%. After acetaminophen level results as normal, additional 650mg ordered given he was initially borderline febrile. Dimer >[address] PE study ordered with addition of abd/pelvis given acute on chronic low back pain and hx of abdominal aneurysm. Patient is reassessed at approximately 11:35 p.m.. He is feeling better, no recurrence of symptoms. Shared decision making with patient and patient's family. Discussed that pending repeat troponin and results of CT chest/abd/pelvis. Admission is offered but they note that would prefer discharge with oral antibiotics if the work up ultimately only shows what we know so far, e.g. the UTI, which they feel might have been going on for a bit now without him mentioning it. Troponin repeat is elevated, will need to be admitted for NSTEMI. Heparin ordered. Aspirin ordered. 6 hour troponin ordered. Family (2 cousins who are at bedside) notified. Because he receives care through the [facility], [facility] was called at approximately 12:30am. They note that they have beds so requested trust clerk fax a face sheet. Repeat troponin still rising. [facility] but they continue to state they haven't received it. At 4:00, because they have not received face sheet and can not admit without this information, they do chapin permission for patient to be admitted here. Discussed with hospitalist BALWINDER Sotomayor. Lab Data Attestation: I reviewed the patient's lab results. 06/25/25 04:03 06/25/25 04:03 Labs: Lab Results 06/22/25 06/22/25 06/22/25 Range/Units 20:08 20:25 20:40 WBC 11.2 H (4.5-10.0) K/mm3 RBC 4.41 L (4.6-6.20) M/mm3 Hgb 13.4 L (14.0-18.0) g/dL Hct 41.0 L (42.0-52.0) % MCV 93.0 (80-100) fl MCH 30.4 (26-34) pg MCHC 32.7 (32-36) g/dl RDW 14.4 (11.5-14.5) % Plt Count 188 (150-375) k/mm3 MPV 9.4 (7.4-10.4) fl Immature Gran % (Auto) 0.4 (0-0.5) % Neut % (Auto) 93.5 H (45.5-73.1) % Lymph % (Auto) 4.7 L (18.3-44.2) % [place] % (Auto) 1.2 L (2.6-8.5) % Eos % (Auto) 0.0 (0-4.4) % Baso % (Auto) 0.2 (0.2-1.2) % Lymph # (Auto) 0.53 L (0.9-3.2) K/mm3 [place] # (Auto) 0.1 (0.1-0.6) K/mm3 Eos # (Auto) 0.0 (0-0.3) K/mm3 Baso # (Auto) 0.0 (0.0-0.1) K/mm3 Abs Immat Gran (auto) 0.04 H (0.00-0.031) K/mm3 Absolute Neuts (auto) 10.5 H (1.3-6.7) K/mm3 Absolute Nucleated RBC 0.000 (0.0-0.012) K/mm3 Nucleated RBC % 0.0 (0.0-0.2) % PT 14.6 (11.1-14.7) Seconds INR 1.2 APTT 32.2 (22.3-36.8) Seconds D-Dimer 5.30 H (<0.48) ug/mL Sodium 136 L (137-145) mmol/L Potassium 3.9 (3.4-5.0) mmol/L Chloride 106 (98-107) mmol/L Carbon Dioxide 15 L (22-30) mmol/L Anion Gap 15 H (4-12) mmol/L BUN 16 (9-20) mg/dL Creatinine 1.20 1.12 (0.8-1.5) mg/dL Estim Creat Clear Calc 37 41 ml/min Estimated GFR 58 L > 60 (59 - ) Glucose 120 H (65-110) mg/dL Calcium 8.9 (8.4-10.2) mg/dL Magnesium (1.6-2.3) mg/dL Total Bilirubin 0.8 (0.2-1.3) mg/dL AST 54 (17-59) U/L ALT 39 (6-50) U/L Alkaline Phosphatase 87 (38-126) U/L Troponin I < 0.012 (0.000-0.034) ng/mL NT-Pro-B Natriuret Pep 514 H (19.9-100) pg/mL Total Protein 7.7 (6.3-8.2) g/dL Albumin 4.1 (3.5-5.1) g/dL Triglycerides (<150) mg/dL Cholesterol (0-200) mg/dL LDL Cholesterol Direct mg/dL HDL Direct mg/dL Urine Color Yellow (Yellow) Urine Appearance Cloudy H (Clear) Urine pH 5.5 (5.0-9.0) Ur Specific Strawberry 1.036 H (1.001-1.035) Urine Protein 3+ H (Negative) mg/dL Urine Glucose (UA) Negative (Negative) mg/dL Urine Ketones Negative (Negative) mg/dL Ur Blood (Man) 2+ H (Negative) Urine Nitrate Negative (Negative) Urine Bilirubin Negative (Negative) Urine Urobilinogen 1.0 (<2.0) mg/dL Add Ur Microanalysis Reviewed Leukocyte Esterase Rfl 1+ H (Negative) MASON/UL Urine RBC 11-20 H (0-2) /hpf Urine WBC 21-50 H (0-3) /hpf Ur Squamous Epith Cells Few (Few) /hpf Urine Bacteria 2+ H /hpf Urine Casts 6-10 Hyaline Casts Present (None) /lpf Urine Mucus Present /lpf Urine Opiates Screen Negative (Negative) Urine Methadone Screen Negative (Negative) Acetaminophen < 10 L (10-30) ug/mL Ur Barbiturates Screen Negative (Negative) Ur Phencyclidine Scrn Negative (Negative) Ur Amphetamine Screen Negative (Negative) U Benzodiazepines Scrn Negative (Negative) Urine Cocaine Screen Negative (Negative) U Cannabinoids Screen Negative (Negative) Ethyl Alcohol < 10 (<10) mg/dL Influenza A (RT-PCR) Negative (Negative) Influenza B (RT-PCR) Negative (Negative) RSV (RT-PCR) Negative (Negative) SARS-CoV-2 RNA (RT-PCR) Negative (Negative) 06/22/25 06/23/25 06/23/25 Range/Units 23:40 02:24 06:45 WBC (4.5-10.0) K/mm3 RBC (4.6-6.20) M/mm3 Hgb (14.0-18.0) g/dL Hct (42.0-52.0) % MCV (80-100) fl MCH (26-34) pg MCHC (32-36) g/dl RDW (11.5-14.5) % Plt Count (150-375) k/mm3 MPV (7.4-10.4) fl Immature Gran % (Auto) (0-0.5) % Neut % (Auto) (45.5-73.1) % Lymph % (Auto) (18.3-44.2) % [place] % (Auto) (2.6-8.5) % Eos % (Auto) (0-4.4) % Baso % (Auto) (0.2-1.2) % Lymph # (Auto) (0.9-3.2) K/mm3 [place] # (Auto) (0.1-0.6) K/mm3 Eos # (Auto) (0-0.3) K/mm3 Baso # (Auto) (0.0-0.1) K/mm3 Abs Immat Gran (auto) (0.00-0.031) K/mm3 Absolute Neuts (auto) (1.3-6.7) K/mm3 Absolute Nucleated RBC (0.0-0.012) K/mm3 Nucleated RBC % (0.0-0.2) % PT (11.1-14.7) Seconds INR APTT 112.4 H (22.3-36.8) Seconds D-Dimer (<0.48) ug/mL Sodium (137-145) mmol/L Potassium (3.4-5.0) mmol/L Chloride (98-107) mmol/L Carbon Dioxide (22-30) mmol/L Anion Gap (4-12) mmol/L BUN (9-20) mg/dL Creatinine (0.8-1.5) mg/dL Estim Creat Clear Calc ml/min Estimated GFR (59 - ) Glucose (65-110) mg/dL Calcium (8.4-10.2) mg/dL Magnesium (1.6-2.3) mg/dL Total Bilirubin (0.2-1.3) mg/dL AST (17-59) U/L ALT (6-50) U/L Alkaline Phosphatase (38-126) U/L Troponin I 0.089 H* D 0.104 H* (0.000-0.034) ng/mL NT-Pro-B Natriuret Pep (19.9-100) pg/mL Total Protein (6.3-8.2) g/dL Albumin (3.5-5.1) g/dL Triglycerides (<150) mg/dL Cholesterol (0-200) mg/dL LDL Cholesterol Direct mg/dL HDL Direct mg/dL Urine Color (Yellow) Urine Appearance (Clear) Urine pH (5.0-9.0) Ur Specific Strawberry (1.001-1.035) Urine Protein (Negative) mg/dL Urine Glucose (UA) (Negative) mg/dL Urine Ketones (Negative) mg/dL Ur Blood (Man) (Negative) Urine Nitrate (Negative) Urine Bilirubin (Negative) Urine Urobilinogen (<2.0) mg/dL Add Ur Microanalysis Leukocyte Esterase Rfl (Negative) MASON/UL Urine RBC (0-2) /hpf Urine WBC (0-3) /hpf Ur Squamous Epith Cells (Few) /hpf Urine Bacteria /hpf Urine Casts Hyaline Casts (None) /lpf Urine Mucus /lpf Urine Opiates Screen (Negative) Urine Methadone Screen (Negative) Acetaminophen (10-30) ug/mL Ur Barbiturates Screen (Negative) Ur Phencyclidine Scrn (Negative) Ur Amphetamine Screen (Negative) U Benzodiazepines Scrn (Negative) Urine Cocaine Screen (Negative) U Cannabinoids Screen (Negative) Ethyl Alcohol (<10) mg/dL Influenza A (RT-PCR) (Negative) Influenza B (RT-PCR) (Negative) RSV (RT-PCR) (Negative) SARS-CoV-2 RNA (RT-PCR) (Negative) 06/23/25 06/23/25 06/23/25 Range/Units 08:22 13:35 19:44 WBC 12.1 H (4.5-10.0) K/mm3 RBC 3.70 L (4.6-6.20) M/mm3 Hgb 11.2 L (14.0-18.0) g/dL Hct 34.3 L (42.0-52.0) % MCV 92.7 (80-100) fl MCH 30.3 (26-34) pg MCHC 32.7 (32-36) g/dl RDW 15.0 H (11.5-14.5) % Plt Count 150 (150-375) k/mm3 MPV 9.5 (7.4-10.4) fl Immature Gran % (Auto) 0.3 (0-0.5) % Neut % (Auto) 82.0 H (45.5-73.1) % Lymph % (Auto) 7.6 L (18.3-44.2) % [place] % (Auto) 9.1 H (2.6-8.5) % Eos % (Auto) 0.7 (0-4.4) % Baso % (Auto) 0.3 (0.2-1.2) % Lymph # (Auto) 0.92 (0.9-3.2) K/mm3 [place] # (Auto) 1.1 H (0.1-0.6) K/mm3 Eos # (Auto) 0.1 (0-0.3) K/mm3 Baso # (Auto) 0.0 (0.0-0.1) K/mm3 Abs Immat Gran (auto) 0.04 H (0.00-0.031) K/mm3 Absolute Neuts (auto) 9.9 H (1.3-6.7) K/mm3 Absolute Nucleated RBC 0.000 (0.0-0.012) K/mm3 Nucleated RBC % 0.0 (0.0-0.2) % PT (11.1-14.7) Seconds INR APTT 104.1 H 123.8 H (22.3-36.8) Seconds D-Dimer (<0.48) ug/mL Sodium 134 L (137-145) mmol/L Potassium 4.4 (3.4-5.0) mmol/L Chloride 108 H (98-107) mmol/L Carbon Dioxide 23 (22-30) mmol/L Anion Gap 3 L (4-12) mmol/L BUN 18 (9-20) mg/dL Creatinine 1.26 (0.8-1.5) mg/dL Estim Creat Clear Calc 35 ml/min Estimated GFR 55 L (59 - ) Glucose 95 (65-110) mg/dL Calcium 8.2 L (8.4-10.2) mg/dL Magnesium 2.1 (1.6-2.3) mg/dL Total Bilirubin 0.6 (0.2-1.3) mg/dL AST 44 (17-59) U/L ALT 21 (6-50) U/L Alkaline Phosphatase 60 (38-126) U/L Troponin I 0.087 H* (0.000-0.034) ng/mL NT-Pro-B Natriuret Pep (19.9-100) pg/mL Total Protein 6.0 L (6.3-8.2) g/dL Albumin 2.9 L (3.5-5.1) g/dL Triglycerides 49 (<150) mg/dL Cholesterol 113 (0-200) mg/dL LDL Cholesterol Direct 34 mg/dL HDL Direct 64 mg/dL Urine Color (Yellow) Urine Appearance (Clear) Urine pH (5.0-9.0) Ur Specific [place] (1.001-1.035) Urine Protein (Negative) mg/dL Urine Glucose (UA) (Negative) mg/dL Urine Ketones (Negative) mg/dL Ur Blood (Man) (Negative) Urine Nitrate (Negative) Urine Bilirubin (Negative) Urine Urobilinogen (<2.0) mg/dL Add Ur Microanalysis Leukocyte Esterase Rfl (Negative) [place]/UL Urine RBC (0-2) /hpf Urine WBC (0-3) /hpf Ur Squamous Epith Cells (Few) /hpf Urine Bacteria /hpf Urine Casts Hyaline Casts (None) /lpf Urine Mucus /lpf Urine Opiates Screen (Negative) Urine Methadone Screen (Negative) Acetaminophen (10-30) ug/mL Ur Barbiturates Screen (Negative) Ur Phencyclidine Scrn (Negative) Ur Amphetamine Screen (Negative) U Benzodiazepines Scrn (Negative) Urine Cocaine Screen (Negative) U Cannabinoids Screen (Negative) Ethyl Alcohol (<10) mg/dL Influenza A (RT-PCR) (Negative) Influenza B (RT-PCR) (Negative) RSV (RT-PCR) (Negative) SARS-CoV-2 RNA (RT-PCR) (Negative) 06/24/25 06/24/25 Range/Units 02:30 10:44 WBC 7.7 (4.5-10.0) K/mm3 RBC 3.55 L (4.6-6.20) M/mm3 Hgb 11.0 L (14.0-18.0) g/dL Hct 33.2 L (42.0-52.0) % MCV 93.5 (80-100) fl MCH 31.0 (26-34) pg MCHC 33.1 (32-36) g/dl RDW 14.8 H (11.5-14.5) % Plt Count 148 L (150-375) k/mm3 MPV 9.6 (7.4-10.4) fl Immature Gran % (Auto) 0.1 (0-0.5) % Neut % (Auto) 63.5 (45.5-73.1) % Lymph % (Auto) 16.7 L (18.3-44.2) % [place] % (Auto) 18.2 H (2.6-8.5) % Eos % (Auto) 1.0 (0-4.4) % Baso % (Auto) 0.5 (0.2-1.2) % Lymph # (Auto) 1.29 (0.9-3.2) K/mm3 [place] # (Auto) 1.4 H (0.1-0.6) K/mm3 Eos # (Auto) 0.1 (0-0.3) K/mm3 Baso # (Auto) 0.0 (0.0-0.1) K/mm3 Abs Immat Gran (auto) 0.01 (0.00-0.031) K/mm3 Absolute Neuts (auto) 4.9 (1.3-6.7) K/mm3 Absolute Nucleated RBC 0.000 (0.0-0.012) K/mm3 Nucleated RBC % 0.0 (0.0-0.2) % PT (11.1-14.7) Seconds INR APTT 146.2 H 49.2 H (22.3-36.8) Seconds D-Dimer (<0.48) ug/mL Sodium 135 L (137-145) mmol/L Potassium 3.9 (3.4-5.0) mmol/L Chloride 107 (98-107) mmol/L Carbon Dioxide 24 (22-30) mmol/L Anion Gap 4 (4-12) mmol/L BUN 18 (9-20) mg/dL Creatinine 1.32 H (0.8-1.5) mg/dL Estim Creat Clear Calc 34 ml/min Estimated GFR 52 L (59 - ) Glucose 83 (65-110) mg/dL Calcium 8.2 L (8.4-10.2) mg/dL Magnesium 2.3 (1.6-2.3) mg/dL Total Bilirubin 0.5 (0.2-1.3) mg/dL AST 40 (17-59) U/L ALT 19 (6-50) U/L Alkaline Phosphatase 68 (38-126) U/L Troponin I (0.000-0.034) ng/mL NT-Pro-B Natriuret Pep (19.9-100) pg/mL Total Protein 6.0 L (6.3-8.2) g/dL Albumin 2.9 L (3.5-5.1) g/dL Triglycerides (<150) mg/dL Cholesterol (0-200) mg/dL LDL Cholesterol Direct mg/dL HDL Direct mg/dL Urine Color (Yellow) Urine Appearance (Clear) Urine pH (5.0-9.0) Ur Specific [place]raw[place] (1.001-1.035) Urine Protein (Negative) mg/dL Urine Glucose (UA) (Negative) mg/dL Urine Ketones (Negative) mg/dL Ur Blood (Man) (Negative) Urine Nitrate (Negative) Urine Bilirubin (Negative) Urine Urobilinogen (<2.0) mg/dL Add Ur Microanalysis Leukocyte Esterase Rfl (Negative) [place] Urine RBC (0-2) /hpf Urine WBC (0-3) /hpf Ur Squamous Epith Cells (Few) /hpf Urine Bacteria /hpf Urine Casts Hyaline Casts (None) /lpf Urine Mucus /lpf Urine Opiates Screen (Negative) Urine Methadone Screen (Negative) Acetaminophen (10-30) ug/mL Ur Barbiturates Screen (Negative) Ur Phencyclidine Scrn (Negative) Ur Amphetamine Screen (Negative) U Benzodiazepines Scrn (Negative) Urine Cocaine Screen (Negative) U Cannabinoids Screen (Negative) Ethyl Alcohol (<10) mg/dL Influenza A (RT-PCR) (Negative) Influenza B (RT-PCR) (Negative) RSV (RT-PCR) (Negative) SARS-CoV-2 RNA (RT-PCR) (Negative) Imaging Data Attestation: I personally reviewed and interpreted this imaging study as follows: My impression: Area of prior stroke/encephalomelacia on my independent interpretation of CT brain w/o contrast Radiologist's impression: Impressions Head CT 06/22/25 20:19 IMPRESSION: 1. 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 No acute intracranial process. 2. Age-related changes including mild diffuse volume loss and moderate scattered white matter T2 hypoattenuation consistent with chronic small vessel ischemic disease. 3. Right otomastoiditis effusion. Head/Neck CTA 06/22/25 20:24 IMPRESSION: CTA NECK: 1. No acute findings. CTA HEAD: 1. No acute findings. Chest X-Ray 06/22/25 20:39 IMPRESSION: 1. No acute cardiopulmonary findings given portable technique. CTA Chest Stat Rad: respiratory motion limits evaluation. No evidence of acute main/ proximal central pulmonary embolism. Cardiomegaly. Bibasilar atelectasis and/or infiltrates. Small hiatal hernia. Distal esophageal mural thickening, inflammation versus under distention. CT Abd & Pelvis Stat Rad: No acute intra-abdominal abnormality. Infrarenal abdominal aortic aneurysm, 4.1 cm with penetrating ulcers. Incompletely evaluated on this nondedicated study. Right common iliac artery ectasias, 2.1 cm. No bowel obstruction or inflammation. No hydronephrosis or renal calculus. Urinary bladder wall thickening, nonspecific. Correlate with urinalysis. Hepatic steatosis and hepatomegaly. ECG Data EKG #1: Attestation: I personally reviewed and interpreted this ECG as follows: ECG completion date: 06/22/25 ECG completion time: 20:31 Prior ECG tracings: not available for review (no prior for comparision) Interpretation: normal sinus rhythm at a rate of 93 beats per minute. CO interval is prolonged at 213 milliseconds consistent with a first-degree AV block. Borderline left axis deviation as QRS complexes positive in 1, negative in 3 and AVF and trending towards negative in lead 2. Incomplete RBBB given QRS less [id number]; RSR' M-shaped pattern in V1-V3; and to a lesser extent wide, slurred S wave in lateral leads (I, aVL more so than V5-6). T-wave inversion versus biphasic T-wave in V5 result T-wave inversion in V6. No T-wave inversions in the inferior leads. EKG #2: Attestation: I personally reviewed and interpreted this ECG as follows: ECG completion date: 06/22/25 ECG completion time: 23:45 Interpretation: Normal sinus rhythm at a rate of 85 beats per minute. CO interval is prolonged at 243 milliseconds consistent with a first-degree AV block. There are frequent PVCs however not in a particular pattern/with regularity. QRS 95. QT/ QTC 344/386. Good R-wave progression across the precordial leads. Biphasic T-waves versus T-wave inversion in V4 and V5 and V6. EKG #3: Attestation: I personally reviewed and interpreted this ECG as follows: ECG completion date: 06/23/25 ECG completion time: 02:23 Interpretation: normal sinus rhythm at a rate of 74 beats per minute. CO interval is prolonged 223 millisecond consistent with a first-degree AV block. QRS 98. QT/ QTC 365/392. Good R-wave progression across the precordial leads. Patient has T-wave flattening versus inversion in 3 and mild flattening in 2 as well as AVF. Patient has questionable appearance of the T-wave in V3 - Wellens-esque but this is not seen in V2. He has similar morphology in V4 however not as pronounced. T-waves are flat in V6 and otherwise appear upright in V5. Discharge Plan Discharge Clinical Impression: Episode of generalized weakness, Leukocytosis, Normocytic anemia, Urinary tract infection in male, Non-ST elevation [place] (NSTEMI), Cardiomegaly, Hiatal hernia, Aneurysm of infrarenal abdominal aorta Patient Disposition: Still a Patient Condition: Stable
[2025-06-22] MEDS: ONDANSETRON INJ 4 MG/2 ML VIAL IV PUSH (20:21)
[2025-06-22 20:34] LABS: Hematocrit 41.0 % (42.0-52.0); Hemoglobin 13.4 g/dL (14.0-18.0); Immature Granulocyte Percent A 0.4 % (0-0.5); Lymphocytes Absolute Auto 0.53 K/mm3 (0.9-3.2); Mean Corpuscular HGB Conc 32.7 g/dl (32-36); Mean Corpuscular Hemoglobin 30.4 pg (26-34); Mean Corpuscular Volume 93.0 fl (80-100); Nucleated Red Blood Cells Absolute Auto 0.000 K/mm3 (0.0-0.012); Nucleated Red Blood Cells Perc 0.0 % (0.0-0.2); Platelet Count Result 188 k/mm3 (150-375); Red Blood Count 4.41 M/mm3 (4.6-6.20); White Blood Count 11.2 K/mm3 (4.5-10.0)
[2025-06-22 20:48] LABS: Alanine Aminotransferase 39 U/L (6-50); Albumin Level 4.1 g/dL (3.5-5.1); Alkaline Phosphatase 87 U/L (38-126); Anion Gap 15 mmol/L (4-12); Aspartate Amino Transferase 54 U/L (17-59); Bilirubin,Total 0.8 mg/dL (0.2-1.3); Blood Urea Nitrogen 16 mg/dL (9-20); Calcium 8.9 mg/dL (8.4-10.2); Carbon Dioxide 15 mmol/L (22-30); Chloride 106 mmol/L (98-107); Estimated CRCL calculation 41 ml/min; Estimated Glomerular Filt Rate > 60; Glucose 120 mg/dL (65-110); Potassium 3.9 mmol/L (3.4-5.0); Sodium 136 mmol/L (137-145); Total Protein 7.7 g/dL (6.3-8.2)
[2025-06-22 20:56] LABS: Add Urine Microscopic? YES; Appearance Urine Cloudy (Clear); Glucose Urine UA Negative (Negative); Leukocyte Esterase Ur 1+ LEU/UL (Negative); Need Manual Microscopic Reviewed; Nitrate Urine Negative (Negative); Specific Grav Ur 1.036 (1.001-1.035)
[2025-06-22 20:58] LABS: NT Pro B Type Natriuretic Pept 514 pg/mL (19.9-100); Troponin I < 0.012 ng/mL (0.000-0.034)
[2025-06-22] MEDS: HYDROcodone/acetaminophen (*CRX) 5-325 MG TABLET 1 TAB PO (21:09)
[2025-06-22 21:10] LABS: Influenza A QL RT-PCR Negative (Negative); Influenza B QL RT-PCR Negative (Negative); RSV RNA, RT-PCR Negative (Negative); SARS-CoV-2 RNA PCR Negative (Negative)
[2025-06-22 21:13] LABS: INR 1.2; Prothrombin Time 14.6 Seconds (11.1-14.7)
[2025-06-22 21:14] LABS: Partial Thromboplastin Time 32.2 Seconds (22.3-36.8)
[2025-06-22] MEDS: cefTRIAXone 1 GM in SODIUM CHLORIDE 0.9% IV 50 ML 100 ML IVPB (21:26)
[2025-06-22 21:33] LABS: Acetaminophen < 10 ug/mL (10-30)
[2025-06-22 21:41] LABS: Cannabinoid Screen Urine Negative (Negative)
--- NOTE | 2025-06-22 23:35 | ECG_ITS ---
Test Date: 2025-06-22 23:45:06 Measurements Intervals [place] Rate: 85 P: 37 NM: 243 QRS: -15 QRSD: 95 T: 8 QT: 344 QTc: 410 Interpretive Statements SINUS RHYTHM WITH FIRST DEGREE AV BLOCK WITH FREQUENT VENTRICULAR PREMATURE COMPLEXES CONSIDER ANTERIOR INFARCT, AGE INDETERMINATE NONSPECIFIC ST-T WAVE ABNORMALITY- ANTEROLATERAL LEADS ABNORMAL ECG Compared to ECG 06/22/2025 20:31:04 Ventricular premature complex(es) now present Electronically Signed On 06-23-2025 06:18:32 CDT by Obed Du D.O.
[2025-06-23] VITALS (47 sets, daily range): BP systolic 109–154; BP diastolic 43–67; PULSE 57–92; RESP 11–24; TEMP 36.9–37.4; O2SAT 93–100; BMI 21.9
--- NOTE | 2025-06-23 | ECHO_ITS ---
Patient Info Name: Ceferino Hampton Age: 85 years : 1940 Gender: Male Ht: 67 in Wt: 139 lbs BSA: 1.73 m2 HR: 62 bpm BP: 149 / 43 mmHg Heart Rhythm: Sinus Rhythm Technical Quality: Good Exam Date: 06/23/2025 11:04 AM Patient Status: O Admit Date: 06/23/2025 Exam Type: CA echo doppler color flow Complete two-dimensional, color flow and Doppler transthoracic echocardiogram is performed. Staff Referring Physician: Светлана Davila NP Manager Transfusion: Lizet Ho Attending Provider: Jennie Barfield Summary 1. Complete two-dimensional, color flow and Doppler transthoracic echocardiogram is performed. 2. Left ventricular systolic function is normal, estimated at 65-70. 3. There is mildly increased left ventricular wall thickness. 4. The left ventricular diastolic function is grade I diastolic dysfunction. 5. Left atrial chamber dimension is mildly enlarged. 6. There is mild aortic valve calcification. 7. There is mild aortic valve regurgitation. 8. There is mild aortic valve stenosis. MARU 1.6cm2 and mean gradient 11mmHg. 9. There is mild mitral valve regurgitation. 10. There is mild tricuspid valve regurgitation. 11. Mild pulmonary hypertension, estimated pulmonary arterial systolic pressure is 44 mmHg. Left Ventricle Left ventricular chamber dimension is normal. Left ventricular systolic function is normal, estimated at 65-70. There is mildly increased left ventricular wall thickness. Left ventricular septal wall motion is normal. The left ventricular diastolic function is grade I diastolic dysfunction. Right Ventricle Right ventricular chamber dimension is normal. Right ventricular systolic function is normal. Left Atria Left atrial chamber dimension is mildly enlarged. Right Atria Right atrial chamber dimension is normal. Aortic Valve The aortic valve is probable trileaflet. There is no aortic valve sclerosis. There is mild aortic valve stenosis. MARU 1.6cm2 and mean gradient 11mmHg. There is mild aortic valve regurgitation. There is mild aortic valve calcification. Pulmonic Valve The pulmonic valve is normal. There is no pulmonic valve stenosis. There is no pulmonic regurgitation. Mitral Valve The mitral valve has normal leaflets. There is no mitral valve stenosis. There is mild mitral valve regurgitation. Tricuspid Valve The tricuspid valve leaflets are normal. There is no significant tricuspid valve stenosis. There is mild tricuspid valve regurgitation. Mild pulmonary hypertension, estimated pulmonary arterial systolic pressure is 44 mmHg. Pericardium/Pleural The pericardium appears normal. There is no pericardial effusion. Inferior Vena Cava Normal inferior vena cava with <50% collapse upon inspiration consistent with elevated right atrial pressure, 10 mmHg. Aorta The aortic root size at the sinus of Valsalva is normal. The prox ascending aorta size is normal. Left Ventricular Outflow Tract Name Value Normal LVOT 2D LVOT Diameter 2.0 cm LVOT Doppler LVOT Peak Velocity 120 cm/s LVOT Peak Gradient 6 mmHg LVOT Mean Gradient 3 mmHg LVOT VTI 27 cm LVOT VTI/AV VTI Ratio 0.6 LVOT Stroke Volume 89 ml LVOT CO 5.2 l/min LVOT CI 3.0 l/min/m2 Pulmonic Valve Name Value Normal RVOT Doppler RVOT Peak Velocity 67 cm/s RVOT Peak Gradient 2 mmHg PV Doppler PV Peak Velocity 90 cm/s PV Peak Gradient 3 mmHg Mitral Valve Name Value Normal MV Diastolic Function MV E Peak Velocity 86 cm/s MV A Peak Velocity 118 cm/s MV E/A 0.7 MV Decel Time (PW) 187 ms MV Annular TDI MV E/e' (Septal) 17.5 MV E/e' (Lateral) 13.7 MV E/e' (Average) 15.6 Tricuspid Valve Name Value Normal TV Regurgitation Doppler TR Peak Velocity 294 cm/s TR Peak Gradient 34 mmHg Estimated PAP/RSVP RA Pressure 10 mmHg <=5 PA Systolic Pressure 44 mmHg <36 RV Systolic Pressure 44 mmHg <36 TV Annular TDI TV Lateral Cassia s' Velocity 13.2 cm/s >=9.5 Aorta Name Value Normal Ascending Aorta Ao Root Diameter (MM) 2.9 cm Ao Root Diam Index (MM) 1.7 cm/m2 Aortic Valve Name Value Normal AV Doppler AV Peak Velocity 242 cm/s AV Peak Gradient 19 mmHg AV Mean Gradient 11 mmHg AV VTI 44 cm AV Area (Cont Eq VTI) 2.0 cm2 >=3.0 AV Area (Cont Eq Wesley) 1.6 cm2 AV DI (Wesley) 0.50 AV Regurgitation 2D LVOT Area 3.2 cm2 Ventricles Name Value Normal LV Dimensions 2D/MM IVS Diastolic Thickness (2D) 1.1 cm 0.6-1.0 LVID Diastole (2D) 4.9 cm 4.2-5.8 LVIW Diastolic Thickness (2D) 1.1 cm 0.6-1.0 LVID Systole (2D) 3.5 cm 2.5-4.0 LVOT Diameter 2.0 cm LV Mass (2D Cubed) 197.46 g 88.00-224.00 LV Mass Index (2D Cubed) 114 g/m2 49-115 Relative Wall Thickness (2D) 0.45 <=0.42 LV Fractional Shortening/Ejection Fraction 2D/MM LV Fractional Shortening (2D) 29 % 25-43 LV EF (2D Teichholz) 55 % LV Diastolic Volume (4C MOD) 111 ml LV EF (4C MOD) 63 % LV Diastolic Volume (2C MOD) 93 ml LV EF (2C MOD) 64 % LV Diastolic Volume (BP MOD) 103 ml 62-150 LV Diastolic Volume Index (BP MOD) 60 ml/m2 34-74 LV Systolic Volume (BP MOD) 38 ml 21-61 LV Systolic Volume Index (BP MOD) 22 ml/m2 11-31 LV EF (BP MOD) 63 % 52-72 LV Diastolic Length (4C) 9.0 cm LV Systolic Length (4C) 8.1 cm LV Stroke Volume (4C MOD) 70 ml Atria Name Value Normal LA Dimensions LA Dimension (MM) 5.0 cm 3.0-4.0 LA Volume (4C A-L) 72 ml LA Volume (BP A-L) 83 ml RA Dimensions RA Area (4C) 14.3 cm2 <=18.0 Report Signatures
[2025-06-23 00:10] LABS: Troponin I 0.089 ng/mL (0.000-0.034)
[2025-06-23] MEDS: ASPIRIN 81 MG CHEWABLE TABLET 324 MG PO (00:27)
[2025-06-23] MEDS: HEPARIN SOD/D5W 100 UNITS/ML 25,000 UNITS/250 ML BAG 8 UNITS IV CONT (00:40)
[2025-06-23] MEDS: PHARMACIST COMMUNICATION ORDER 1 EACH XX (00:42)
--- NOTE | 2025-06-23 02:16 | ECG_ITS ---
Test Date: 2025-06-23 02:23:15 Measurements Intervals [place] Rate: 74 P: 39 LA: 223 QRS: -8 QRSD: 98 T: 45 QT: 365 QTc: 405 Interpretive Statements SINUS RHYTHM WITH MARKED SINUS ARRHYTHMIA WITH FIRST DEGREE AV BLOCK BORDERLINE T WAVE ABNORMALITY- ANTEROLAT/INF LEADS BASELINE ARTIFACT- I, II, AVR, AVL, V1 BORDERLINE ECG Compared to ECG 06/22/2025 23:45:06 PVC NO LONGER PRESENT Electronically Signed On 06-23-2025 06:19:55 CDT by Obed Du D.O.
[2025-06-23 03:08] LABS: Troponin I 0.104 ng/mL (0.000-0.034)
--- NOTE | 2025-06-23 04:53 | PM.IMHP ---
H&P: HPI History of Present Illness Date/Time: 06/23/25 04:53 Chief Complaint: Blurred vision and facial droop Narrative: This is an 85-year-old male patient who has had a past history of having a CVA (6 years ago), hypertension and abdominal aneurysm. The patient has some mild residual weakness to his right upper lower extremity. His speech is clear. The patient came to the emergency room with blurred vision in both eyes and left facial droop. Family was concerned that the patient was having another stroke. He stated that all of his extremities were stiff and he was unable to move them all. His symptoms started around 7:00 p.m. yesterday. The patient also had some complaints of chest pain and some nausea. His blood pressure was noted to be 220/80 via EMS. His blood pressure was 130/60 upon arrival to the emergency room. His symptoms resolved EN route to the emergency room. His point of care blood sugar in the EMS was 111. His EKG was read as sinus rhythm with marked sinus arrhythmia with first-degree AV block and possible right ventricular conduction delay. Possible ischemia now press. He has some T-wave abnormality. Head CT was read as a following . 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 No acute intracranial process. 2. Age-related changes including mild diffuse volume loss and moderate scattered white matter T2 hypoattenuation consistent with chronic small vessel ischemic disease. 3. Right otomastoiditis effusion. Head and neck CTA no acute findings on the CT of the neck or the head. Chest x-ray was read as no acute cardiopulmonary findings. His H&H is 13.4 and 41.0 which is above his baseline. His D-dimer was noted as 5.30. His anion gap is 15. Glucose is 120. His initial troponin was negative and the 2nd troponin was noted to be 0.089 and the 3rd troponin was noted to be 0.104. The patient was started on heparin drip. Cardiology consult was placed. Patient's urinalysis has 1+ leukocyte esterase, red blood cells 11-20, white blood cells 21-50, and urine bacteria 2+. He was started on ceftriaxone. The patient is being admitted to observation status on the date of service of 06/23/2025. Review of Systems Constitutional: Constitutional: Reports as per HPI and Reports no additional constitutional complaints Eyes: Eyes: Reports as per HPI and Reports no additional eye complaints ENT: Reports no additional ear, nose, mouth, and throat complaints and Reports Normal hearing present Cardiovascular: Cardiovascular: Reports no additional cardiovascular complaints Respiratory: Respiratory: Reports as per HPI and Reports no additional respiratory complaints Gastrointestinal: Gastrointestinal: Reports as per HPI and Reports no additional gastrointestinal complaints Musculoskeletal: Musculoskeletal: Reports no additional musculoskeletal complaints Integumentary/Breasts: Skin/Breast: Reports system reviewed and no additional complaints, except as docu Neurologic: Reports no additional neurologic complaints and Reports Normal hearing present Psychiatric: Psychiatric: Reports no additional psychiatric complaints and Reports as per HPI Hematologic/Lymphatic: Hematologic/Lymphatic: Reports no additional hematologic/lymphatic complaints Allergic/Immunologic: Allergic/Immunologic: Reports no additional allergic/immunologic complaints [facility] Past Medical History Medical History (Updated 06/23/25 @ 06:30 by Светлана Davila APRN) BPH (benign prostatic hyperplasia) Chronic GERD Abdominal aneurysm 4.9 cm on imaging 2022 CVA (cerebral vascular accident) 2015. Right sided residual weakness. Hypertension Surgical History Surgical History (Updated 06/23/25 @ 04:55 by Светлана Davila APRN) History of tonsillectomy and adenoidectomy History of surgery on arm Family History Family History (Updated 06/23/25 @ 04:56 by Светлана Davila APRN) Mother Hypertension Social History Social History Social History: The patient lives with his cousins. 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 Receives care through the [facility] Code status full code Smoking status: Never smoker Alcohol intake: never Substance use: never Substance use type: does not use Lack of Transportation: No Lack of Food: Never True Current Housing: I Have Housing Concerned About Future Housing: No Difficulty Paying Gas/Electric Bills: No Difficulty Paying for Meds: No Currently Unemployed: No Education: High School Diploma/GED Difficulty w/ Childcare or Family Care: No Occupation/Education: retired Sexual Orientation (if Verbalized by the Patient): Straight or Heterosexual Spiritual care concerns: No Agree to blood products: Yes Meds Home Medications and Allergies Home Medications ?Medication ?Instructions ?Recorded ?Confirmed ?Type amlodipine 10 mg BYMOUTH DAILY 04/15/23 06/23/25 History lisinopril 40 mg tablet 40 mg PO DAILY 04/15/23 06/23/25 History cholecalciferol (vitamin D3) 25 25 mcg PO DAILY 08/11/24 06/23/25 History mcg (1,000 unit) capsule omeprazole 20 mg capsule,delayed 20 mg PO DAILY 08/11/24 06/23/25 History release rosuvastatin 40 mg sprinkle capsule 40 mg PO DAILY 08/11/24 06/23/25 History tamsulosin 0.4 mg capsule 0.4 mg PO DAILY 08/11/24 06/23/25 History Allergies Allergy/AdvReac Type Severity Reaction Status Date / Time No Known Allergies Allergy Verified 06/22/25 21:16 Vital Signs Vital Signs - 24 hr 06/22/25 20:24 06/22/25 20:31 06/22/25 20:50 Temperature 100.2 F H Pulse Rate 92 97 94 Respiratory Rate 15 20 18 Blood Pressure 141/54 H 132/58 L 136/57 L Pulse Oximetry 97 100 97 Oxygen Delivery Room Air 06/22/25 22:21 06/22/25 23:19 06/22/25 23:30 Temperature Pulse Rate 86 84 81 Respiratory Rate 15 19 22 H Blood Pressure 129/69 Pulse Oximetry 97 94 93 Oxygen Delivery 06/22/25 23:32 06/22/25 23:45 06/22/25 23:46 Temperature Pulse Rate 85 83 83 Respiratory Rate 19 21 H 20 Blood Pressure 121/58 L 135/55 L Pulse Oximetry 94 Oxygen Delivery 06/23/25 00:00 06/23/25 00:01 06/23/25 00:15 Temperature Pulse Rate 84 84 82 Respiratory Rate 21 H 21 H 21 H Blood Pressure 125/55 L Pulse Oximetry Oxygen Delivery 06/23/25 00:16 06/23/25 00:31 06/23/25 00:45 Temperature Pulse Rate 85 83 79 Respiratory Rate 20 20 18 Blood Pressure 126/55 L Pulse Oximetry 95 95 Oxygen Delivery 06/23/25 01:09 Temperature 98.6 F Pulse Rate Respiratory Rate Blood Pressure Pulse Oximetry Oxygen Delivery Exam Const: General: cooperative, healthy appearing, comfortable, no acute distress, well developed, awake, Physically active, average body habitus and well nourished Nutritional Appearance: average body habitus and well nourished Orientation/consciousness: oriented to person, oriented to place, oriented to time and patient oriented x3 Limitations: no limitations HENMT: Head: normal to inspection, No palpable skull fracture present and normocephalic Eyes: General: appearance normal, both eyes and all related structures Alignment and Position: alignment normal Periorbital: periorbital findings normal Eyelids: eyelids normal Conjunctivae: conjunctivae normal Sclera: sclerae normal Cornea: corneas normal Pupils: Equal, round and reactive pupils present and Pupil accommodation reflex normal EOM: EOMs intact bilaterally Neck: Neck: normal visual inspection, full ROM and no lymphadenopathy Chest: Chest palpation & inspection: normal inspection of the chest Resp: Effort & Inspection: normal respiratory effort Auscultation: clear to auscultation bilaterally Percussion: percussion normal Cardio: Palpation: normal PMI Rate: regular rate Rhythm: regular rhythm Heart sounds: S1 normal heart sound present and S2 normal heart sound present Peripheral pulses: Peripheral pulses 2+ throughout GI: Inspection: normal to inspection Auscultation: normal bowel sounds Rectal Exam: deferred Skin: General skin exam: normal color Lesions: no lesions Rashes: no rashes Trauma: no lacerations or abrasions Wounds: no wounds Hair: normal Nails: normal Neuro: General: oriented to person, oriented to place, oriented to time and patient oriented x3 Cranial nerves: Yes Equal, round and reactive pupils present and Yes Normal hearing present Cognition (Neuro): normal cognition Speech: normal speech Motor exam (neuro): 5/5 motor strength present throughout Sensory Exam: normal sensation Other: The patient has some mild residual weakness to right upper and right lower extremity from previous CVA. His speech is clear. He is talking without difficulty. Extrem: General: normal to inspection Right upper extremity: normal to inspection and shoulder/upper arm Left upper extremity: normal to inspection and shoulder/upper arm Right lower extremity: normal to inspection Left lower extremity: normal to inspection Psych: Appearance: grossly normal Mental Status: mental status grossly normal Speech and movement: Normal speech and movement present Affect: normal affect Attitude: cooperative Thought process: Normal thought process present Thought content: Yes Normal thought content present Insight: Good insight present (Psych) Judgement: Good judgement present (Psych) H&P: Results Labs Labs: Short CBC 06/22/25 Range/Units 20:25 WBC 11.2 H (4.5-10.0) K/mm3 Hgb 13.4 L (14.0-18.0) g/dL Hct 41.0 L (42.0-52.0) % Plt Count 188 (150-375) k/mm3 BMP 06/22/25 20:25 Sodium 136 L Potassium 3.9 Chloride 106 Carbon Dioxide 15 L BUN 16 Creatinine 1.12 Glucose 120 H Calcium 8.9 Cardiac Enzymes 06/22/25 06/22/25 06/23/25 Range/Units 20:25 23:40 02:24 Troponin I < 0.012 0.089 H* D 0.104 H* (0.000-0.034) ng/mL Liver Function 06/22/25 Range/Units 20:25 Total Bilirubin 0.8 (0.2-1.3) mg/dL AST 54 (17-59) U/L ALT 39 (6-50) U/L Alkaline Phosphatase 87 (38-126) U/L Albumin 4.1 (3.5-5.1) g/dL Urine 06/22/25 Range/Units 20:40 Urine Color Yellow (Yellow) Urine Appearance Cloudy H (Clear) Urine pH 5.5 (5.0-9.0) Ur Specific [place] 1.036 H (1.001-1.035) Urine Protein 3+ H (Negative) mg/dL Urine Glucose (UA) Negative (Negative) mg/dL ECG Interpretation: Rate 74 ND 223 QRSd 98 QT 365 QTc 405 --Salvo-- P 39 QRS -8 T 45 SINUS RHYTHM WITH MARKED SINUS ARRHYTHMIA WITH FIRST DEGREE AV BLOCK POSSIBLE RIGHT VENTRICULAR CONDUCTION DELAY [RSR (QR) IN V1/V2] MODERATE T-WAVE ABNORMALITY, CONSIDER ANTERIOR ISCHEMIA [-0.1+ mV T WAVE IN V3/V4] Compared to ECG 06/22/2025 23:45:06 Possible ischemia now present Ventricular premature complex(es) no longer present Imaging CT scan - head: Radiologist's impression: Head CT 06/22/25 20:19 IMPRESSION: 1. 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 No acute intracranial process. 2. Age-related changes including mild diffuse volume loss and moderate scattered white matter T2 hypoattenuation consistent with chronic small vessel ischemic disease. 3. Right otomastoiditis effusion. Head/Neck CTA 06/22/25 20:24 IMPRESSION: CTA NECK: 1. No acute findings. CTA HEAD: 1. No acute findings. Chest X-Ray 06/22/25 20:39 IMPRESSION:. No acute cardiopulmonary findings given portable technique. Assessment and Plan Assessment and plan (1) Non-ST elevation PA (NSTEMI): Code(s): I21.4 - Non-ST elevation (NSTEMI) myocardial infarction Status: Acute Assessment and Plan: -cardiology has been consulted. -the patient presented with chest pain and nausea. -the initial troponin was found to be negative however serial troponins have increased. -repeat of 4th troponin. -patient's pain is controlled at this moment. -EKG changes show T-wave abnormalities. -heparin drip has been initiated. -continues rosuvastatin -may consider beta-narciso (2) Hypertension: Qualifiers: Hypertension type: primary hypertension Qualified Code(s): I10 - Essential (primary) hypertension Code(s): I10 - Essential (primary) hypertension Status: Acute Assessment and Plan: -continue with his amlodipine are substitute with formulary -continue with lisinopril but monitor his BMP daily -patient's blood pressure was greatly elevated in the ambulance but has improved since he came to the emergency room. (3) Acute UTI: Code(s): N39.0 - Urinary tract infection, site not specified Status: Acute Assessment and Plan: -the patient was placed on Rocephin. Antibiotic course Pending blood and urine cultures. (4) Aneurysm of infrarenal abdominal aorta: Code(s): I71.43 - Infrarenal abdominal aortic aneurysm, without rupture Status: Acute Assessment and Plan: -CTA Chest Stat Rad: respiratory motion limits evaluation. No evidence of acute main/ proximal central pulmonary embolism. Cardiomegaly. Bibasilar atelectasis and/or infiltrates. Small hiatal hernia. Distal esophageal mural thickening, inflammation versus under distention. CT Abd & Pelvis Stat Rad: No acute intra-abdominal abnormality. Infrarenal abdominal aortic aneurysm, 4.1 cm with penetrating ulcers. Incompletely evaluated on this nondedicated study. Right common iliac artery ectasias, 2.1 cm. No bowel obstruction or inflammation. No hydronephrosis or renal calculus. Urinary bladder wall thickening, nonspecific. Correlate with urinalysis. Hepatic steatosis and hepatomegaly. -his previous aneurysm measurement was 4.9 cm -continue to monitor peripherally (5) Hyperlipidemia: Qualifiers: Hyperlipidemia type: mixed hyperlipidemia Qualified Code(s): E78.2 - Mixed hyperlipidemia Code(s): E78.5 - Hyperlipidemia, unspecified Status: Acute Assessment and Plan: -continue with atorvastatin and monitor liver panel (6) Elevated d-dimer: Code(s): R79.89 - Other specified abnormal findings of blood chemistry Status: Acute Assessment and Plan: -patient's D-dimer was noted to be 5.30. -the patient stated that he did have some pain in his legs a couple days ago but there is no swelling. -check venous Dopplers. -CTA pulmonary was negative for any PE. (7) BPH (benign prostatic hyperplasia): Code(s): N40.0 - Benign prostatic hyperplasia without lower urinary tract symptoms Status: Acute Assessment and Plan: -continue tamsulosin (8) Altered mental status: Code(s): R41.82 - Altered mental status, unspecified Status: Acute Assessment and Plan: - nihss score was 5 and now is a 3. 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 He has some mild residual weakness of the right upper lower extremity. -CT of the brain was negative. However I did order an MRI and consult Neurology. Patient is back at his baseline. -could be related to his UTI as well. Quality VTE Prophylaxis VTE prophylaxis: pharmacologic ordered Stroke Scale Stroke scale date:: 06/23/25 Stroke scale time:: 06:28 1a Level of conciousness: alert-0 1b Level of consciousness: answers both correctly-0 1c Level of consciousness: obeys both correctly-0 2 Best gaze: normal-0 3 Visual: no visual loss-0 4 Facial palsy: normal-0 5a Motor: left arm: no drift-0 5b Motor: right arm: drift-1 6a Motor: left leg: no drift-0 6b Motor: right leg: drift-1 7 Limb ataxia: present in one limb-1 8 Sensory: normal-0 9 Best language: no aphasia-0 10 Dysarthria: normal-0 11 Extinction and inattention: no abnormality-0 Level:: 3
--- NOTE | 2025-06-23 05:43 | ADMGEN ---
This patient, Ceferino Hampton, was admitted to IMU Room 213-01. Patient/family oriented to hospital policies and general routines including ID bracelet, bed and alarms, visiting hours, pain management, procedures, bathroom and other care routines, personal items, smoking policy, room service/diet, and visiting hours. Information on how to activate the Rapid Response Team has been discussed. Patient/Family are encouraged to report perceived risks to care and to ask questions if they do not understand what they are told or what they should do.
[2025-06-23 07:13] LABS: Partial Thromboplastin Time 112.4 Seconds (22.3-36.8)
[2025-06-23 07:31] LABS: Estimated CRCL calculation 37 ml/min; Estimated Glomerular Filt Rate 58
--- NOTE | 2025-06-23 08:53 | PM.CNCAR ---
Assessment and Plan Assessment and plan (1) Non-ST elevation RI (NSTEMI): Code(s): I21.4 - Non-ST elevation (NSTEMI) myocardial infarction Status: Acute (2) Aneurysm of infrarenal abdominal aorta: Code(s): I71.43 - Infrarenal abdominal aortic aneurysm, without rupture Status: Acute (3) Hypertension: Qualifiers: Hypertension type: primary hypertension Qualified Code(s): I10 - Essential (primary) hypertension Code(s): I10 - Essential (primary) hypertension Status: Acute (4) Acute UTI: Code(s): N39.0 - Urinary tract infection, site not specified Status: Acute (5) CVA (cerebral vascular accident): Code(s): I63.9 - Cerebral infarction, unspecified Status: Acute Plan NSTEMI. With troponin of 0.089, 0.104, and 0.087, most likely represents demand ischemia in setting of UTI. EKG demonstrates NSR with ST/T wave changes in anterolateral leads, but no acute ST elevation noted. No previous EKG available for comparison. Patient was started on heparin drip per primary team, patient however, is chest pain free at this time. Will do 2D echo to look for any LV dysfunction or wall motion abnormality. If none noted would recommend stopping heparin drip and managing medically with aspirin 81 mg daily and his rosuvastatin. Can plan for OP stress if no acute echo abnormality once acute issues resolved. Appears patient follows at the [facility] for [facility] care. Weakness/visual changes. With concern for CVA. No focal neuro deficits on exam. Patient is somewhat of a poor historian. CT head negative for acute process. May benefit from neuro evaluation. UTI. Antibiotics as per primary team Elevated D-dimer. CTA chest negative for PE. Venous doppler is negative for DVT Hypertension. would resume home norvasc 10 mg daily and lisinopril 40mg daily. AAA. CT demonstrates a stable 4.9 cm infrarenal aortic aneurysm. Asymptomatic. Needs BP control. continue aspirin 81 mg daily and rosuvastatin Hx of CVA. continue aspirin and statin therapy. History of Present Illness History of Present Illness Consult date/time: 06/23/25 08:53 Requesting physician: Светлана Davila APRN Consult reason: Other (elevated troponin ) Reason For Visit: NSTEMI, UTI Narrative: Ceferino Hampton is an 85 y.o. AA male who presented to the hospital with reports of blurred vision, facial droop and generalized weakness. He states yesterday he had an intense pain in his abdomen and his whole body felt weak. He was having pain with urination as well. He told his cousin that he lives with this and they brought him to the ER. In the ER CT head noted to be negative for acute process. He did have EKG that was noted to be abnormal however, and elevated troponin. He was also, found to have UTI and was started on antibiotics. This am patient is feeling improved. He denies any chest pain or pressure now or prior to admission. No reports of any shortness of breath or palpitations. No dizziness. He does report some nausea and vomiting. No reported fever or chills. Denies any previous cardiac history and states he seeks medical care at the [facility]. Review of Systems Review of Systems: All systems reviewed & are unremarkable except as noted in HPI and below PMFSH Past Medical History Medical History (Updated 06/23/25 @ 06:30 by Светлана Davila APRN) BPH (benign prostatic hyperplasia) Chronic GERD Abdominal aneurysm 4.9 cm on imaging 2022 CVA (cerebral vascular accident) 2015. Right sided residual weakness. Hypertension Surgical History Surgical History (Updated 06/23/25 @ 04:55 by Светлана Davila APRN) History of tonsillectomy and adenoidectomy History of surgery on arm Family History Family History (Updated 06/23/25 @ 04:56 by Светлана Davila APRN) Mother Hypertension Social History Social History Social History: The patient lives with his cousins. 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 Receives care through the [facility] Code status full code Smoking status: Never smoker Alcohol intake: never Substance use: never Substance use type: does not use Lack of Transportation: No Lack of Food: Never True Current Housing: I Have Housing Concerned About Future Housing: No Difficulty Paying Gas/Electric Bills: No Difficulty Paying for Meds: No Currently Unemployed: No Education: High School Diploma/GED Difficulty w/ Childcare or Family Care: No Occupation/Education: retired Sexual Orientation (if Verbalized by the Patient): Straight or Heterosexual Spiritual care concerns: No Agree to blood products: Yes Meds Home Medications and Allergies Home Medications ?Medication ?Instructions ?Recorded ?Confirmed ?Type amlodipine 10 mg BYMOUTH DAILY 04/15/23 06/23/25 History lisinopril 40 mg tablet 40 mg PO DAILY 04/15/23 06/23/25 History cholecalciferol (vitamin D3) 25 25 mcg PO DAILY 08/11/24 06/23/25 History mcg (1,000 unit) capsule omeprazole 20 mg capsule,delayed 20 mg PO DAILY 08/11/24 06/23/25 History release rosuvastatin 40 mg sprinkle capsule 40 mg PO DAILY 08/11/24 06/23/25 History tamsulosin 0.4 mg capsule 0.4 mg PO DAILY 08/11/24 06/23/25 History Allergies Allergy/AdvReac Type Severity Reaction Status Date / Time No Known Allergies Allergy Verified 06/22/25 21:16 Vital Signs Vital Signs - 24 hr 06/22/25 20:24 06/22/25 20:31 06/22/25 20:50 Temperature 37.9 C H Pulse Rate 92 97 94 Respiratory Rate 15 20 18 Blood Pressure 141/54 H 132/58 L 136/57 L Pulse Oximetry 97 100 97 Oxygen Delivery Room Air 06/22/25 22:21 06/22/25 23:19 06/22/25 23:30 Temperature Pulse Rate 86 84 81 Respiratory Rate 15 19 22 H Blood Pressure 129/69 Pulse Oximetry 97 94 93 Oxygen Delivery 06/22/25 23:32 06/22/25 23:45 06/22/25 23:46 Temperature Pulse Rate 85 83 83 Respiratory Rate 19 21 H 20 Blood Pressure 121/58 L 135/55 L Pulse Oximetry 94 Oxygen Delivery 06/23/25 00:00 06/23/25 00:01 06/23/25 00:15 Temperature Pulse Rate 84 84 82 Respiratory Rate 21 H 21 H 21 H Blood Pressure 125/55 L Pulse Oximetry Oxygen Delivery 06/23/25 00:16 06/23/25 00:31 06/23/25 00:45 Temperature Pulse Rate 85 83 79 Respiratory Rate 20 20 18 Blood Pressure 126/55 L Pulse Oximetry 95 95 Oxygen Delivery 06/23/25 00:46 06/23/25 01:00 06/23/25 01:01 Temperature Pulse Rate 92 76 78 Respiratory Rate 20 20 20 Blood Pressure 124/45 L 109/52 L Pulse Oximetry 95 93 94 Oxygen Delivery 06/23/25 01:09 06/23/25 01:15 06/23/25 01:16 Temperature 37.0 C Pulse Rate 81 74 Respiratory Rate 24 H 23 H Blood Pressure 113/58 L Pulse Oximetry 97 100 Oxygen Delivery 06/23/25 01:42 06/23/25 01:45 06/23/25 01:46 Temperature Pulse Rate 75 77 74 Respiratory Rate 18 17 17 Blood Pressure 119/51 L Pulse Oximetry 100 100 100 Oxygen Delivery 06/23/25 02:16 06/23/25 02:38 06/23/25 02:45 Temperature Pulse Rate 90 72 73 Respiratory Rate 21 H 19 19 Blood Pressure Pulse Oximetry 97 98 Oxygen Delivery 06/23/25 03:00 06/23/25 03:01 06/23/25 03:19 Temperature Pulse Rate 68 71 64 Respiratory Rate 18 17 19 Blood Pressure 124/58 L Pulse Oximetry 98 98 96 Oxygen Delivery 06/23/25 03:30 06/23/25 03:45 06/23/25 03:46 Temperature Pulse Rate 61 62 62 Respiratory Rate 19 18 19 Blood Pressure 110/47 L Pulse Oximetry 100 98 97 Oxygen Delivery 06/23/25 04:00 06/23/25 04:01 06/23/25 04:15 Temperature Pulse Rate 70 Respiratory Rate 11 L 19 18 Blood Pressure 121/49 L Pulse Oximetry 98 99 97 Oxygen Delivery 06/23/25 04:17 06/23/25 04:30 06/23/25 04:32 Temperature Pulse Rate 70 70 73 Respiratory Rate 16 18 19 Blood Pressure 117/51 L 131/48 L Pulse Oximetry 97 97 100 Oxygen Delivery 06/23/25 04:45 06/23/25 04:51 06/23/25 05:00 Temperature Pulse Rate 64 69 72 Respiratory Rate 21 H 15 19 Blood Pressure 144/51 H Pulse Oximetry 98 100 99 Oxygen Delivery 06/23/25 05:02 06/23/25 05:14 06/23/25 06:00 Temperature 37.3 C Pulse Rate 72 63 62 Respiratory Rate 14 14 Blood Pressure 131/67 149/43 H Pulse Oximetry 100 100 Oxygen Delivery 06/23/25 07:59 Temperature 37.4 C Pulse Rate 71 Respiratory Rate 18 Blood Pressure 154/47 H Pulse Oximetry 96 Oxygen Delivery Exam Const: General: comfortable and no acute distress Neck: Neck: no JVD Thyroid: thyroid normal Carotids: no bruits (no bruit ) Resp: Effort & Inspection: normal respiratory effort Auscultation: clear to auscultation bilaterally Cardio: Rate: regular rate Rhythm: regular rhythm Heart sounds: no murmurs GI: Inspection: non-distended GI Palp: Yes Soft to palpation Skin: General skin exam: normal color Lesions: no lesions noted Extrem: General: normal to inspection and no edema Psych: Mental Status: mental status grossly normal Results Labs and Meds 06/22/25 20:25 06/22/25 20:25 Lab results: Cardiac Enzymes 06/22/25 06/22/25 06/23/25 Range/Units 20:25 23:40 02:24 AST 54 (17-59) U/L Troponin I < 0.012 0.089 H* D 0.104 H* (0.000-0.034) ng/mL Coagulation 06/22/25 06/23/25 Range/Units 20:25 06:45 PT 14.6 (11.1-14.7) Seconds APTT 32.2 112.4 H (22.3-36.8) Seconds CBC 06/22/25 Range/Units 20:25 WBC 11.2 H (4.5-10.0) K/mm3 RBC 4.41 L (4.6-6.20) M/mm3 Hgb 13.4 L (14.0-18.0) g/dL Hct 41.0 L (42.0-52.0) % Plt Count 188 (150-375) k/mm3 Lymph # (Auto) 0.53 L (0.9-3.2) K/mm3 [place] # (Auto) 0.1 (0.1-0.6) K/mm3 Eos # (Auto) 0.0 (0-0.3) K/mm3 Baso # (Auto) 0.0 (0.0-0.1) K/mm3 Comprehensive Metabolic Panel 06/22/25 06/22/25 Range/Units 20:08 20:25 Sodium 136 L (137-145) mmol/L Potassium 3.9 (3.4-5.0) mmol/L Chloride 106 (98-107) mmol/L Carbon Dioxide 15 L (22-30) mmol/L BUN 16 (9-20) mg/dL Creatinine 1.20 1.12 (0.8-1.5) mg/dL Glucose 120 H (65-110) mg/dL Calcium 8.9 (8.4-10.2) mg/dL AST 54 (17-59) U/L ALT 39 (6-50) U/L Alkaline Phosphatase 87 (38-126) U/L Total Protein 7.7 (6.3-8.2) g/dL Albumin 4.1 (3.5-5.1) g/dL Intake and Output 06/22/25 06/23/25 06/23/25 23:59 07:59 15:59 Intake Total 50 53.5 Balance 50 53.5 Intake: IV 50 53.5 Heparin Sod/D5w 100 Units/ml 25 53.5 ,000 units In 250 ml @ 800 UNITS/HR 8 mls/hr IV CONT .Q24H [facility] Rx#:[id number] cefTRIAXone 1 gm In Sodium 50 Chloride 0.9% IV 50 ml @ 100 mls/hr IVPB ONCE STA Rx#: [id number] Patient Weight 06/23/25 23:59 Weight 63.5 kg EKG Interpretation EKG: sinus rhythm EKG shows: sinus rhythm (with anterior lateral ST changes, no acute ST/T wave changes )
[2025-06-23 08:57] LABS: Troponin I 0.087 ng/mL (0.000-0.034)
[2025-06-23] MEDS: cefTRIAXone 1 GM in SODIUM CHLORIDE 0.9% IV 50 ML 100 ML IVPB (09:08)
[2025-06-23] MEDS: ROSUVASTATIN 20 MG TABLET 40 MG BY MOUTH (09:11)
[2025-06-23] MEDS: CHOLECALCIFEROL (VITAMIN D3) 25 MCG (1,000 UNITS) TABLET PO (09:11)
[2025-06-23] MEDS: TAMSULOSIN HCL 0.4 MG CAPSULE PO (09:12)
[2025-06-23] MEDS: PANTOPRAZOLE 40 MG TABLET PO (09:12)
--- NOTE | 2025-06-23 13:16 | P.PNIM_ITS ---
Progress Note: A&P Assessment and Plan (1) Non-ST elevation ND (NSTEMI): Code(s): I21.4 - Non-ST elevation (NSTEMI) myocardial infarction Status: Acute Assessment and Plan: -the patient presented with chest pain and nausea/vomiting. -the initial troponin was found to be negative however serial troponins have increased suggestive of non ST elevation ND -patient's pain is controlled at this moment. -EKG changes show T-wave abnormalities. -patient has been started on heparin drip which will be continued -continues rosuvastatin. Check LDL Add aspirin 81 mg daily received 325 mg x 1 on arrival to the ER -may consider beta-narciso Echo pending (2) Hypertension: Qualifiers: Hypertension type: primary hypertension Qualified Code(s): I10 - Essential (primary) hypertension Code(s): I10 - Essential (primary) hypertension Status: Acute Assessment and Plan: -continue with his amlodipine are substitute with formulary -continue with lisinopril but monitor his BMP daily -patient's blood pressure was greatly elevated in the ambulance but has improved since he came to the emergency room. (3) Acute UTI: Code(s): N39.0 - Urinary tract infection, site not specified Status: Acute Assessment and Plan: -the patient was placed on Rocephin. Antibiotic course Pending blood and urine cultures. A patient reports on of hematuria and urinary symptoms (4) Aneurysm of infrarenal abdominal aorta: Code(s): I71.43 - Infrarenal abdominal aortic aneurysm, without rupture Status: Acute Assessment and Plan: -CTA Chest Stat Rad: respiratory motion limits evaluation. No evidence of acute main/ proximal central pulmonary embolism. Cardiomegaly. Bibasilar atelectasis and/or infiltrates. Small hiatal hernia. Distal esophageal mural thickening, inflammation versus under distention. CT Abd & Pelvis Stat Rad: No acute intra-abdominal abnormality. Infrarenal abdominal aortic aneurysm, 4.1 cm with penetrating ulcers. Incompletely evaluated on this nondedicated study. Right common iliac artery ectasias, 2.1 cm. No bowel obstruction or inflammation. No hydronephrosis or renal calculus. Urinary bladder wall thickening, nonspecific. Correlate with urinalysis. Hepatic steatosis and hepatomegaly. -his previous aneurysm measurement was 4.9 cm -continue to monitor peripherally (5) Hyperlipidemia: Qualifiers: Hyperlipidemia type: mixed hyperlipidemia Qualified Code(s): E78.2 - Mixed hyperlipidemia Code(s): E78.5 - Hyperlipidemia, unspecified Status: Acute Assessment and Plan: -continue with atorvastatin and monitor liver panel (6) Elevated d-dimer: Code(s): R79.89 - Other specified abnormal findings of blood chemistry Status: Acute Assessment and Plan: -patient's D-dimer was noted to be 5.30. -the patient stated that he did have some pain in his legs a couple days ago but there is no swelling. -venous duplex negative for DVT -CTA pulmonary was negative for any PE. (7) BPH (benign prostatic hyperplasia): Code(s): N40.0 - Benign prostatic hyperplasia without lower urinary tract symptoms Status: Acute Assessment and Plan: -continue tamsulosin (8) Altered mental status: Code(s): R41.82 - Altered mental status, unspecified Status: Acute Assessment and Plan: - nihss score was 5 and now is a 3. 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 He has some mild residual weakness of the right upper lower extremity. -CT of the brain was negative. However I did order an MRI and consult Neurology. Patient is back at his baseline. -could be related to his UTI as well. MRI brain pending Plan Hematuria on and off will monitor could be related to underlying UTI. Follow urine culture Subjective Date/time seen: 06/23/25 13:16 Interval history: He feels better today. Denies any pain. Reports he had some blood in his urine yesterday. Had some generalized discomfort. Some chest pain/abdominal pain and an episode of vomiting. Chart reviewed. Labs and imaging studies reviewed. Review of Systems Review of Systems: All systems reviewed & are unremarkable except as noted in HPI and below Exam Narrative: GENERAL: Well-appearing, well-nourished, and in no acute distress. HEAD: Normocephalic, atraumatic. EYES: Non injected, non icteric. Left eye nasal hemianopia. No gaze palsy. ENT: Nares clear, no rhinorrhea or epistaxis. Gross auditory acuity intact. NECK: Supple. No meningismus. CHEST: Clear to auscultation. No respiratory distress. HEART: Regular rate and rhythm. ABDOMEN: Soft, nondistended. Nontender, No rigidity or guarding. EXTREMITIES: Normal range of motion. No lower extremity edema. Moving extremities x4. SKIN: Warm, dry, no rash. NEURO: No focal deficits. Alert and oriented. No aphasia. No gross focal deficits Objective Data Vital Signs Vital Signs: Vital Signs - 24 hr 06/22/25 20:24 06/22/25 20:31 06/22/25 20:50 Temperature 100.2 F H Pulse Rate 92 97 94 Respiratory Rate 15 20 18 Blood Pressure 141/54 H 132/58 L 136/57 L Pulse Oximetry 97 100 97 Oxygen Delivery Room Air 06/22/25 22:21 06/22/25 23:19 06/22/25 23:30 Temperature Pulse Rate 86 84 81 Respiratory Rate 15 19 22 H Blood Pressure 129/69 Pulse Oximetry 97 94 93 Oxygen Delivery 06/22/25 23:32 06/22/25 23:45 06/22/25 23:46 Temperature Pulse Rate 85 83 83 Respiratory Rate 19 21 H 20 Blood Pressure 121/58 L 135/55 L Pulse Oximetry 94 Oxygen Delivery 06/23/25 00:00 06/23/25 00:01 06/23/25 00:15 Temperature Pulse Rate 84 84 82 Respiratory Rate 21 H 21 H 21 H Blood Pressure 125/55 L Pulse Oximetry Oxygen Delivery 06/23/25 00:16 06/23/25 00:31 06/23/25 00:45 Temperature Pulse Rate 85 83 79 Respiratory Rate 20 20 18 Blood Pressure 126/55 L Pulse Oximetry 95 95 Oxygen Delivery 06/23/25 00:46 06/23/25 01:00 06/23/25 01:01 Temperature Pulse Rate 92 76 78 Respiratory Rate 20 20 20 Blood Pressure 124/45 L 109/52 L Pulse Oximetry 95 93 94 Oxygen Delivery 06/23/25 01:09 06/23/25 01:15 06/23/25 01:16 Temperature 98.6 F Pulse Rate 81 74 Respiratory Rate 24 H 23 H Blood Pressure 113/58 L Pulse Oximetry 97 100 Oxygen Delivery 06/23/25 01:42 06/23/25 01:45 06/23/25 01:46 Temperature Pulse Rate 75 77 74 Respiratory Rate 18 17 17 Blood Pressure 119/51 L Pulse Oximetry 100 100 100 Oxygen Delivery 06/23/25 02:16 06/23/25 02:38 06/23/25 02:45 Temperature Pulse Rate 90 72 73 Respiratory Rate 21 H 19 19 Blood Pressure Pulse Oximetry 97 98 Oxygen Delivery 06/23/25 03:00 06/23/25 03:01 06/23/25 03:19 Temperature Pulse Rate 68 71 64 Respiratory Rate 18 17 19 Blood Pressure 124/58 L Pulse Oximetry 98 98 96 Oxygen Delivery 06/23/25 03:30 06/23/25 03:45 06/23/25 03:46 Temperature Pulse Rate 61 62 62 Respiratory Rate 19 18 19 Blood Pressure 110/47 L Pulse Oximetry 100 98 97 Oxygen Delivery 06/23/25 04:00 06/23/25 04:01 06/23/25 04:15 Temperature Pulse Rate 70 Respiratory Rate 11 L 19 18 Blood Pressure 121/49 L Pulse Oximetry 98 99 97 Oxygen Delivery 06/23/25 04:17 06/23/25 04:30 06/23/25 04:32 Temperature Pulse Rate 70 70 73 Respiratory Rate 16 18 19 Blood Pressure 117/51 L 131/48 L Pulse Oximetry 97 97 100 Oxygen Delivery 06/23/25 04:45 06/23/25 04:51 06/23/25 05:00 Temperature Pulse Rate 64 69 72 Respiratory Rate 21 H 15 19 Blood Pressure 144/51 H Pulse Oximetry 98 100 99 Oxygen Delivery 06/23/25 05:02 06/23/25 05:14 06/23/25 06:00 Temperature 99.1 F Pulse Rate 72 63 62 Respiratory Rate 14 14 Blood Pressure 131/67 149/43 H Pulse Oximetry 100 100 Oxygen Delivery 06/23/25 07:59 06/23/25 11:57 Temperature 99.3 F 98.8 F Pulse Rate 71 68 Respiratory Rate 18 16 Blood Pressure 154/47 H 138/45 L Pulse Oximetry 96 100 Oxygen Delivery Intake/Output Intake/Output: Intake & Output 06/20/25 06/21/25 06/22/25 06/23/25 23:59 23:59 23:59 23:59 Intake Total 50 53.5 Balance 50 53.5 Meds/Results Medications: Active Medications Generic Name Dose Route Start Last Admin Trade Name Freq PRN Reason Stop Dose Admin Acetaminophen 650 mg 06/23/25 04:16 Acetaminophen 325 Mg Tablet PO Q4H PRN Mild Pain (1-3) or Fever Amlodipine Besylate 10 mg 06/23/25 09:00 06/23/25 09:11 Amlodipine Besylate 10 Mg Tablet BY MOUTH 10 mg DAILY JEANNETTE Administration Heparin Sodium (Porcine) 4,000 units 06/23/25 00:19 Heparin Sodium 5,000 Units/Ml Vial IV PUSH PRN PRN aPTT less than 55 seconds Heparin Sodium (Porcine) 2,500 units 06/23/25 00:19 Heparin Sodium 5,000 Units/Ml Vial IV PUSH PRN PRN aPTT 55 - 70 seconds Heparin Sodium/Dextrose 25,000 units in 250 mls @ 7 mls/hr 06/23/25 00:20 06/23/25 07:21 Heparin Sodium/D5w 100 Units/Ml IV CONT 700 units/hr .Q24H JEANNETTE 7 mls/hr Protocol Titration 700 UNITS/HR Ceftriaxone Sodium 1 gm/ 50 mls @ 100 mls/hr 06/23/25 09:00 06/23/25 09:08 Sodium Chloride IVPB 100 mls/hr Q24H JEANNETTE Administration Lisinopril 40 mg 06/23/25 09:00 06/23/25 09:12 Lisinopril 20 Mg Tablet PO 40 mg DAILY JEANNETTE Administration Ondansetron HCl 4 mg 06/23/25 04:16 Ondansetron Inj 4 Mg/2 Ml Vial IV PUSH Q4H PRN Nausea Pantoprazole Sodium 40 mg 06/23/25 09:00 06/23/25 09:12 Pantoprazole 40 Mg Tablet PO 40 mg QAM JEANNETTE Administration Perflutren Lipid Microsphere 0 ml 06/23/25 06:53 Perflutren Lipid Microspheres 1.5 Ml Vial Diluted To 10 Ml Total Volume IV PUSH 06/26/25 06:53 ONCE PRN adequate visualization Protocol Rosuvastatin Calcium 40 mg 06/23/25 09:00 06/23/25 09:11 Rosuvastatin 20 Mg Tablet BY MOUTH 40 mg DAILY JEANNETTE Administration Tamsulosin HCl 0.4 mg 06/23/25 09:00 06/23/25 09:12 Tamsulosin Hcl 0.4 Mg Capsule PO 0.4 mg DAILY JEANNETTE Administration Vitamin D 25 mcg 06/23/25 09:00 06/23/25 09:11 Cholecalciferol (Vitamin D3) 25 Mcg (1,000 Units) Tablet PO 25 mcg DAILY JEANNETTE Administration Radiology Results: ITS Impressions Head CT 06/22/25 20:19 IMPRESSION: 1. 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 No acute intracranial process. 2. Age-related changes including mild diffuse volume loss and moderate scattered white matter T2 hypoattenuation consistent with chronic small vessel ischemic disease. 3. Right otomastoiditis effusion. Head/Neck CTA 06/22/25 20:24 IMPRESSION: CTA NECK: 1. No acute findings. CTA HEAD: 1. No acute findings. Chest X-Ray 06/22/25 20:39 IMPRESSION: 1. No acute cardiopulmonary findings given portable technique. Chest/Abdomen/Pelvis CTA 06/23/25 08:15 IMPRESSION: 1. No pulmonary embolus. 2. Small sliding hiatal hernia. 3. Stable 4.9 cm fusiform infrarenal aortic aneurysm. Venous Doppler Study 06/23/25 09:41 Impression: Negative for DVT. Labs Labs: Laboratory Results - last 24 hr 06/22/25 06/22/25 06/22/25 20:08 20:25 20:40 WBC 11.2 H RBC 4.41 L Hgb 13.4 L Hct 41.0 L MCV 93.0 MCH 30.4 MCHC 32.7 RDW 14.4 Plt Count 188 MPV 9.4 Immature Gran % (Auto) 0.4 Neut % (Auto) 93.5 H Lymph % (Auto) 4.7 L [place] % (Auto) 1.2 L Eos % (Auto) 0.0 Baso % (Auto) 0.2 Lymph # (Auto) 0.53 L [place] # (Auto) 0.1 Eos # (Auto) 0.0 Baso # (Auto) 0.0 Abs Immat Gran (auto) 0.04 H Absolute Neuts (auto) 10.5 H Absolute Nucleated RBC 0.000 Nucleated RBC % 0.0 PT 14.6 INR 1.2 APTT 32.2 D-Dimer 5.30 H Sodium 136 L Potassium 3.9 Chloride 106 Carbon Dioxide 15 L Anion Gap 15 H BUN 16 Creatinine 1.20 1.12 Estim Creat Clear Calc 37 41 Estimated GFR 58 L > 60 Glucose 120 H Calcium 8.9 Total Bilirubin 0.8 AST 54 ALT 39 Alkaline Phosphatase 87 Troponin I < 0.012 NT-Pro-B Natriuret Pep 514 H Total Protein 7.7 Albumin 4.1 Urine Color Yellow Urine Appearance Cloudy H Urine pH 5.5 Ur Specific [place] 1.036 H Urine Protein 3+ H Urine Glucose (UA) Negative Urine Ketones Negative Ur Blood (Man) 2+ H Urine Nitrate Negative Urine Bilirubin Negative Urine Urobilinogen 1.0 Add Ur Microanalysis Reviewed Leukocyte Esterase Rfl 1+ H Urine RBC 11-20 H Urine WBC 21-50 H Ur Squamous Epith Cells Few Urine Bacteria 2+ H Urine Casts 6-10 Hyaline Casts Present Urine Mucus Present Urine Opiates Screen Negative Urine Methadone Screen Negative Acetaminophen < 10 L Ur Barbiturates Screen Negative Ur Phencyclidine Scrn Negative Ur Amphetamine Screen Negative U Benzodiazepines Scrn Negative Urine Cocaine Screen Negative U Cannabinoids Screen Negative Ethyl Alcohol < 10 Influenza A (RT-PCR) Negative Influenza B (RT-PCR) Negative RSV (RT-PCR) Negative SARS-CoV-2 RNA (RT-PCR) Negative 06/22/25 06/23/25 06/23/25 23:40 02:24 06:45 WBC RBC Hgb Hct MCV MCH MCHC RDW Plt Count MPV Immature Gran % (Auto) Neut % (Auto) Lymph % (Auto) [place] % (Auto) Eos % (Auto) Baso % (Auto) Lymph # (Auto) [place] # (Auto) Eos # (Auto) Baso # (Auto) Abs Immat Gran (auto) Absolute Neuts (auto) Absolute Nucleated RBC Nucleated RBC % PT INR APTT 112.4 H D-Dimer Sodium Potassium Chloride Carbon Dioxide Anion Gap BUN Creatinine Estim Creat Clear Calc Estimated GFR Glucose Calcium Total Bilirubin AST ALT Alkaline Phosphatase Troponin I 0.089 H* D 0.104 H* NT-Pro-B Natriuret Pep Total Protein Albumin Urine Color Urine Appearance Urine pH Ur Specific [place] Urine Protein Urine Glucose (UA) Urine Ketones Ur Blood (Man) Urine Nitrate Urine Bilirubin Urine Urobilinogen Add Ur Microanalysis Leukocyte Esterase Rfl Urine RBC Urine WBC Ur Squamous Epith Cells Urine Bacteria Urine Casts Hyaline Casts Urine Mucus Urine Opiates Screen Urine Methadone Screen Acetaminophen Ur Barbiturates Screen Ur Phencyclidine Scrn Ur Amphetamine Screen U Benzodiazepines Scrn Urine Cocaine Screen U Cannabinoids Screen Ethyl Alcohol Influenza A (RT-PCR) Influenza B (RT-PCR) RSV (RT-PCR) SARS-CoV-2 RNA (RT-PCR) 06/23/25 08:22 WBC RBC Hgb Hct MCV MCH MCHC RDW Plt Count MPV Immature Gran % (Auto) Neut % (Auto) Lymph % (Auto) [place] % (Auto) Eos % (Auto) Baso % (Auto) Lymph # (Auto) [place] # (Auto) Eos # (Auto) Baso # (Auto) Abs Immat Gran (auto) Absolute Neuts (auto) Absolute Nucleated RBC Nucleated RBC % PT INR APTT D-Dimer Sodium Potassium Chloride Carbon Dioxide Anion Gap BUN Creatinine Estim Creat Clear Calc Estimated GFR Glucose Calcium Total Bilirubin AST ALT Alkaline Phosphatase Troponin I 0.087 H* NT-Pro-B Natriuret Pep Total Protein Albumin Urine Color Urine Appearance Urine pH Ur Specific [place] Urine Protein Urine Glucose (UA) Urine Ketones Ur Blood (Man) Urine Nitrate Urine Bilirubin Urine Urobilinogen Add Ur Microanalysis Leukocyte Esterase Rfl Urine RBC Urine WBC Ur Squamous Epith Cells Urine Bacteria Urine Casts Hyaline Casts Urine Mucus Urine Opiates Screen Urine Methadone Screen Acetaminophen Ur Barbiturates Screen Ur Phencyclidine Scrn Ur Amphetamine Screen U Benzodiazepines Scrn Urine Cocaine Screen U Cannabinoids Screen Ethyl Alcohol Influenza A (RT-PCR) Influenza B (RT-PCR) RSV (RT-PCR) SARS-CoV-2 RNA (RT-PCR)
[2025-06-23 13:47] LABS: Hematocrit 34.3 % (42.0-52.0); Hemoglobin 11.2 g/dL (14.0-18.0); Immature Granulocyte Percent A 0.3 % (0-0.5); Lymphocytes Absolute Auto 0.92 K/mm3 (0.9-3.2); Mean Corpuscular HGB Conc 32.7 g/dl (32-36); Mean Corpuscular Hemoglobin 30.3 pg (26-34); Mean Corpuscular Volume 92.7 fl (80-100); Nucleated Red Blood Cells Absolute Auto 0.000 K/mm3 (0.0-0.012); Nucleated Red Blood Cells Perc 0.0 % (0.0-0.2); Platelet Count Result 150 k/mm3 (150-375); Red Blood Count 3.70 M/mm3 (4.6-6.20); White Blood Count 12.1 K/mm3 (4.5-10.0)
[2025-06-23 13:59] LABS: Partial Thromboplastin Time 104.1 Seconds (22.3-36.8)
[2025-06-23 14:22] LABS: Alanine Aminotransferase 21 U/L (6-50); Albumin Level 2.9 g/dL (3.5-5.1); Alkaline Phosphatase 60 U/L (38-126); Anion Gap 3 mmol/L (4-12); Aspartate Amino Transferase 44 U/L (17-59); Bilirubin,Total 0.6 mg/dL (0.2-1.3); Blood Urea Nitrogen 18 mg/dL (9-20); Calcium 8.2 mg/dL (8.4-10.2); Carbon Dioxide 23 mmol/L (22-30); Chloride 108 mmol/L (98-107); Cholesterol 113 mg/dL (0-200); Estimated CRCL calculation 35 ml/min; Estimated Glomerular Filt Rate 55; Glucose 95 mg/dL (65-110); HDL Direct 64 mg/dL; Magnesium 2.1 mg/dL (1.6-2.3); Potassium 4.4 mmol/L (3.4-5.0); Sodium 134 mmol/L (137-145); Total Protein 6.0 g/dL (6.3-8.2); Triglycerides 49 mg/dL (<150)
[2025-06-23 20:17] LABS: Partial Thromboplastin Time 123.8 Seconds (22.3-36.8)
[2025-06-23] MEDS: ACETAMINOPHEN 325 MG TABLET 650 MG PO (20:43)
[2025-06-24] VITALS (14 sets, daily range): BP systolic 121–154; BP diastolic 39–75; PULSE 48–136; RESP 15–16; TEMP 36.6–37.1; O2SAT 97–99
[2025-06-24 02:36] LABS: Hematocrit 33.2 % (42.0-52.0); Hemoglobin 11.0 g/dL (14.0-18.0); Immature Granulocyte Percent A 0.1 % (0-0.5); Lymphocytes Absolute Auto 1.29 K/mm3 (0.9-3.2); Mean Corpuscular HGB Conc 33.1 g/dl (32-36); Mean Corpuscular Hemoglobin 31.0 pg (26-34); Mean Corpuscular Volume 93.5 fl (80-100); Nucleated Red Blood Cells Absolute Auto 0.000 K/mm3 (0.0-0.012); Nucleated Red Blood Cells Perc 0.0 % (0.0-0.2); Platelet Count Result 148 k/mm3 (150-375); Red Blood Count 3.55 M/mm3 (4.6-6.20); White Blood Count 7.7 K/mm3 (4.5-10.0)
[2025-06-24 02:48] LABS: Alanine Aminotransferase 19 U/L (6-50); Albumin Level 2.9 g/dL (3.5-5.1); Alkaline Phosphatase 68 U/L (38-126); Anion Gap 4 mmol/L (4-12); Aspartate Amino Transferase 40 U/L (17-59); Bilirubin,Total 0.5 mg/dL (0.2-1.3); Blood Urea Nitrogen 18 mg/dL (9-20); Calcium 8.2 mg/dL (8.4-10.2); Carbon Dioxide 24 mmol/L (22-30); Chloride 107 mmol/L (98-107); Estimated CRCL calculation 34 ml/min; Estimated Glomerular Filt Rate 52; Glucose 83 mg/dL (65-110); Magnesium 2.3 mg/dL (1.6-2.3); Potassium 3.9 mmol/L (3.4-5.0); Sodium 135 mmol/L (137-145); Total Protein 6.0 g/dL (6.3-8.2)
[2025-06-24 03:11] LABS: Partial Thromboplastin Time 146.2 Seconds (22.3-36.8)
[2025-06-24] MEDS: ROSUVASTATIN 20 MG TABLET 40 MG BY MOUTH (08:15)
[2025-06-24] MEDS: CHOLECALCIFEROL (VITAMIN D3) 25 MCG (1,000 UNITS) TABLET PO (08:15)
[2025-06-24] MEDS: ASPIRIN 81 MG ENTERIC TABLET PO (08:15)
[2025-06-24] MEDS: PANTOPRAZOLE 40 MG TABLET PO (08:15)
[2025-06-24] MEDS: TAMSULOSIN HCL 0.4 MG CAPSULE PO (08:15)
[2025-06-24] MEDS: cefTRIAXone 1 GM in SODIUM CHLORIDE 0.9% IV 50 ML 100 ML IVPB (08:16)
--- NOTE | 2025-06-24 09:47 | PM.PNCARD ---
Progress Note: A&P Assessment and Plan (1) Non-ST elevation ME (NSTEMI): Code(s): I21.4 - Non-ST elevation (NSTEMI) myocardial infarction Status: Acute (2) Cardiomegaly: Code(s): I51.7 - Cardiomegaly Status: Acute (3) Transient neurological symptoms: Code(s): R29.818 - Other symptoms and signs involving the nervous system Status: Acute (4) BPH (benign prostatic hyperplasia): Code(s): N40.0 - Benign prostatic hyperplasia without lower urinary tract symptoms Status: Acute (5) Hyperlipidemia: Qualifiers: Hyperlipidemia type: mixed hyperlipidemia Qualified Code(s): E78.2 - Mixed hyperlipidemia Code(s): E78.5 - Hyperlipidemia, unspecified Status: Acute (6) Abdominal aneurysm: Code(s): I71.40 - Abdominal aortic aneurysm, without rupture, unspecified Status: Acute Plan Assessment/Plan 1. Mild elevation of cardiac troponins without chest pain. Likely secondary to demand ischemia in this patient. Echocardiogram does not show any wall motion abnormalities and normal systolic function. 2. History of hypertension with hypertensive heart disease. Blood pressure stable on current medications. 3. Transient neurological symptoms completely resolved. MRI scan of the brain does reveal chronic encephalomalacia involving left thalamus and right basal ganglia and foci of old hemorrhage in the brain. Patient likely has previous stroke and vascular dementia component prior 4. Urine tract infection with nausea vomiting. Improved at this time. 5. History of hyperlipidemia on statin. 6. Benign prostatic hypertrophy. Patient is on tamsulosin. 7. Stable abdominal aortic aneurysm at 4.9 cm. Continue to monitor. No need for intervention at this time. Patient seems to be stable from cardiac viewpoint. Cardiology will sign off and follow only as needed. Thank you again for allowing us to participate in care this patient. Subjective Date/time seen: 06/24/25 09:47 Interval history: Review of HPI: 85-year-old gentleman admitted on 06/22/2025 with complaints of left facial droop and blood vision in both eyes.. Patient states that while he was going to the bathroom he felt 1000 significant nausea followed by emesis and some chest pain. Blood pressure was somewhat elevated by EMS in the range of 120/80 mm of mercury. Patient does have a history of hypertension and the benign prostatic hypertrophy. Patient is on amlodipine, lisinopril rosuvastatin and tamsulosin at home. Patient has known history of cerebrovascular accident in 2016 as well as known history of 4.9 cm abdominal aortic aneurysm. Patient had no chest pain or shortness of breath. A CT scan of the brain without contrast showed no acute process. CT of the neck and head was also negative. Laboratory data was significant for elevated WBC count. Hemoglobin 13.4 and platelets were normal. Sodium 136, potassium 3.9, BUN 16 creatinine is 1.1. ProBNP was 5.14. Cardiac troponin was 0.012 followed by 0.089. EKG on admission revealed normal sinus rhythm with heart rate of 93 per minute poor R-wave progression and nonspecific T changes. Patient appeared to have left ventricular hypertrophy. Interval history and hospital progress: Patient was found to have urine tract infection was started on IV antibiotics. Patient is feeling better with without abdominal pain, nausea vomiting at this time. Echocardiogram on 06/23/2025 revealed normal left ventricular size and systolic function estimated at 65-70% with mild left ventricular hypertrophy. Grade 1 diastolic dysfunction is noted. Mild pulmonary hypertension estimated at 44 mm Hg. No significant valvular problems noted. Subjective: Patient examined at the bedside. Patient is awake alert and feeling much better without abdominal pain nausea or vomiting. No complaints of chest pain or shortness of breath. Blood pressure is 152/44 and heart rate is 59 per minute. Review of Systems Review of Systems: Twelve point review of system was completed. Pertinent positive and negative findings per HPI. Exam Narrative: Patient examined at the bedside. Patient is awake alert and oriented x3 answering all questions. Not in any distress, shortness of breath, chest pain or orthopnea. Head and neck examination is unremarkable. Head is atraumatic. Sclerae is nonicteric. ENT examination is negative Heart sounds reveal normal S1-S2 there is no significant murmurs S3 or S4. Lungs are clear to auscultation percussion. Abdomen is soft nontender. There is no hepatosplenomegaly bowel sounds present. Extremities revealed no pedal edema Neurological examination is intact. Objective Data Vital Signs Vital Signs: Vital Signs - 24 hr 06/23/25 10:00 06/23/25 11:57 06/23/25 12:00 Temperature 37.1 C Pulse Rate 66 68 73 Respiratory Rate 16 Blood Pressure 138/45 L Pulse Oximetry 100 06/23/25 14:00 06/23/25 16:00 06/23/25 16:00 Temperature 36.9 C Pulse Rate 64 67 60 Respiratory Rate 16 Blood Pressure 138/45 L Pulse Oximetry 98 06/23/25 18:00 06/23/25 19:50 06/23/25 20:00 Temperature 37.1 C Pulse Rate 67 65 61 Respiratory Rate 16 Blood Pressure 145/49 H Pulse Oximetry 99 06/23/25 22:00 06/24/25 00:00 06/24/25 00:00 Temperature 37.1 C Pulse Rate 57 L 55 L 54 L Respiratory Rate 16 Blood Pressure 121/42 L Pulse Oximetry 98 06/24/25 02:00 06/24/25 04:00 06/24/25 04:00 Temperature 37.1 C Pulse Rate 51 L 51 L 48 L Respiratory Rate 16 Blood Pressure 133/48 L Pulse Oximetry 99 06/24/25 06:00 06/24/25 08:00 Temperature 36.6 C Pulse Rate 53 L 59 L Respiratory Rate 16 Blood Pressure 152/44 H Pulse Oximetry 99 Intake/Output Intake/Output: Intake & Output 06/21/25 06/22/25 06/23/25 06/24/25 23:59 23:59 23:59 23:59 Intake Total 50 554.4 243 Output Total 200 400 Balance 50 354.4 -157 Meds/Results Medications: Active Medications Generic Name Dose Route Start Last Admin Trade Name Freq PRN Reason Stop Dose Admin Acetaminophen 650 mg 06/23/25 04:16 06/23/25 20:43 Acetaminophen 325 Mg Tablet PO 650 mg Q4H PRN Administration Mild Pain (1-3) or Fever Amlodipine Besylate 10 mg 06/23/25 09:00 06/24/25 08:15 Amlodipine Besylate 10 Mg Tablet BY MOUTH 10 mg DAILY JEANNETTE Administration Aspirin 81 mg 06/24/25 09:00 06/24/25 08:15 Aspirin 81 Mg Enteric Tablet PO 81 mg QAM JEANNETTE Administration Heparin Sodium (Porcine) 4,000 units 06/23/25 00:19 Heparin Sodium 5,000 Units/Ml Vial IV PUSH PRN PRN aPTT less than 55 seconds Heparin Sodium (Porcine) 2,500 units 06/23/25 00:19 Heparin Sodium 5,000 Units/Ml Vial IV PUSH PRN PRN aPTT 55 - 70 seconds Heparin Sodium/Dextrose 25,000 units in 250 mls @ 4 mls/hr 06/23/25 00:20 06/24/25 04:48 Heparin Sodium/D5w 100 Units/Ml IV CONT 400 units/hr .Q24H JEANNETTE 4 mls/hr Protocol Titration 400 UNITS/HR Ceftriaxone Sodium 1 gm/ 50 mls @ 100 mls/hr 06/23/25 09:00 06/24/25 08:16 Sodium Chloride IVPB 100 mls/hr Q24H JEANNETTE Administration Lisinopril 40 mg 06/23/25 09:00 06/24/25 08:15 Lisinopril 20 Mg Tablet PO 40 mg DAILY JEANNETTE Administration Ondansetron HCl 4 mg 06/23/25 04:16 Ondansetron Inj 4 Mg/2 Ml Vial IV PUSH Q4H PRN Nausea Pantoprazole Sodium 40 mg 06/23/25 09:00 06/24/25 08:15 Pantoprazole 40 Mg Tablet PO 40 mg QAM JEANNETTE Administration Perflutren Lipid Microsphere 0 ml 06/23/25 06:53 Perflutren Lipid Microspheres 1.5 Ml Vial Diluted To 10 Ml Total Volume IV PUSH 06/26/25 06:53 ONCE PRN adequate visualization Protocol Rosuvastatin Calcium 40 mg 06/23/25 09:00 06/24/25 08:15 Rosuvastatin 20 Mg Tablet BY MOUTH 40 mg DAILY JEANNETTE Administration Tamsulosin HCl 0.4 mg 06/23/25 09:00 06/24/25 08:15 Tamsulosin Hcl 0.4 Mg Capsule PO 0.4 mg DAILY JEANNETTE Administration Vitamin D 25 mcg 06/23/25 09:00 06/24/25 08:15 Cholecalciferol (Vitamin D3) 25 Mcg (1,000 Units) Tablet PO 25 mcg DAILY JEANNETTE Administration Radiology Results: ITS Impressions Head CT 06/22/25 20:19 IMPRESSION: 1. 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 No acute intracranial process. 2. Age-related changes including mild diffuse volume loss and moderate scattered white matter T2 hypoattenuation consistent with chronic small vessel ischemic disease. 3. Right otomastoiditis effusion. Head/Neck CTA 06/22/25 20:24 IMPRESSION: CTA NECK: 1. No acute findings. CTA HEAD: 1. No acute findings. Chest X-Ray 06/22/25 20:39 IMPRESSION: 1. No acute cardiopulmonary findings given portable technique. Chest/Abdomen/Pelvis CTA 06/23/25 08:15 IMPRESSION: 1. No pulmonary embolus. 2. Small sliding hiatal hernia. 3. Stable 4.9 cm fusiform infrarenal aortic aneurysm. Venous Doppler Study 06/23/25 09:41 Impression: Negative for DVT. Brain MRI 06/24/25 09:11 IMPRESSION: 1. 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 2. Scattered foci of old hemorrhage in the brain. 3. Moderate nonspecific cerebral white matter disease and pontine disease, which likely represents chronic small vessel ischemic disease. Labs Labs: Laboratory Results - last 24 hr 06/23/25 06/23/25 06/24/25 13:35 19:44 02:30 WBC 12.1 H 7.7 RBC 3.70 L 3.55 L Hgb 11.2 L 11.0 L Hct 34.3 L 33.2 L MCV 92.7 93.5 MCH 30.3 31.0 MCHC 32.7 33.1 RDW 15.0 H 14.8 H Plt Count 150 148 L MPV 9.5 9.6 Immature Gran % (Auto) 0.3 0.1 Neut % (Auto) 82.0 H 63.5 Lymph % (Auto) 7.6 L 16.7 L [place] % (Auto) 9.1 H 18.2 H Eos % (Auto) 0.7 1.0 Baso % (Auto) 0.3 0.5 Lymph # (Auto) 0.92 1.29 [place] # (Auto) 1.1 H 1.4 H Eos # (Auto) 0.1 0.1 Baso # (Auto) 0.0 0.0 Abs Immat Gran (auto) 0.04 H 0.01 Absolute Neuts (auto) 9.9 H 4.9 Absolute Nucleated RBC 0.000 0.000 Nucleated RBC % 0.0 0.0 APTT 104.1 H 123.8 H 146.2 H Sodium 134 L 135 L Potassium 4.4 3.9 Chloride 108 H 107 Carbon Dioxide 23 24 Anion Gap 3 L 4 BUN 18 18 Creatinine 1.26 1.32 H Estim Creat Clear Calc 35 34 Estimated GFR 55 L 52 L Glucose 95 83 Calcium 8.2 L 8.2 L Magnesium 2.1 2.3 Total Bilirubin 0.6 0.5 AST 44 40 ALT 21 19 Alkaline Phosphatase 60 68 Total Protein 6.0 L 6.0 L Albumin 2.9 L 2.9 L Triglycerides 49 Cholesterol 113 LDL Cholesterol Direct 34 HDL Direct 64
--- NOTE | 2025-06-24 09:57 | P.PNIM_ITS ---
Progress Note: A&P Assessment and Plan (1) Non-ST elevation NC (NSTEMI): Code(s): I21.4 - Non-ST elevation (NSTEMI) myocardial infarction Status: Acute Assessment and Plan: -the patient presented with chest pain and nausea/vomiting. -the initial troponin was found to be negative however serial troponins have increased suggestive of non ST elevation NC -patient's pain is controlled at this moment. -EKG changes show T-wave abnormalities. -patient has been started on heparin drip which will be continued -continues rosuvastatin. Check LDL Add aspirin 81 mg daily received 325 mg x 1 on arrival to the ER -may consider beta-narciso however mildly bradycardic already Echo 06/23/2025: EF 65-70% grade 1 diastolic dysfunction mild aortic stenosis mild aortic regurgitation mild MR mild TR mild pulmonary hypertension (2) Hypertension: Qualifiers: Hypertension type: primary hypertension Qualified Code(s): I10 - Essential (primary) hypertension Code(s): I10 - Essential (primary) hypertension Status: Acute Assessment and Plan: -continue with his amlodipine are substitute with formulary -continue with lisinopril but monitor his BMP daily -patient's blood pressure was greatly elevated in the ambulance but has improved since he came to the emergency room. (3) Acute UTI: Code(s): N39.0 - Urinary tract infection, site not specified Status: Acute Assessment and Plan: -the patient was placed on Rocephin. Antibiotic course Pending blood and urine cultures. A patient reports on of hematuria and urinary symptoms Follow urine culture Symptomatic early improving with no further hematuria (4) Aneurysm of infrarenal abdominal aorta: Code(s): I71.43 - Infrarenal abdominal aortic aneurysm, without rupture Status: Acute Assessment and Plan: -CTA Chest Stat Rad: respiratory motion limits evaluation. No evidence of acute main/ proximal central pulmonary embolism. Cardiomegaly. Bibasilar atelectasis and/or infiltrates. Small hiatal hernia. Distal esophageal mural thickening, inflammation versus under distention. CT Abd & Pelvis Stat Rad: No acute intra-abdominal abnormality. Infrarenal abdominal aortic aneurysm, 4.1 cm with penetrating ulcers. Incompletely evaluated on this nondedicated study. Right common iliac artery ectasias, 2.1 cm. No bowel obstruction or inflammation. No hydronephrosis or renal calculus. Urinary bladder wall thickening, nonspecific. Correlate with urinalysis. Hepatic steatosis and hepatomegaly. -his previous aneurysm measurement was 4.9 cm -continue to monitor peripherally (5) Hyperlipidemia: Qualifiers: Hyperlipidemia type: mixed hyperlipidemia Qualified Code(s): E78.2 - Mixed hyperlipidemia Code(s): E78.5 - Hyperlipidemia, unspecified Status: Acute Assessment and Plan: -continue with atorvastatin and monitor liver panel (6) Elevated d-dimer: Code(s): R79.89 - Other specified abnormal findings of blood chemistry Status: Acute Assessment and Plan: -patient's D-dimer was noted to be 5.30. -the patient stated that he did have some pain in his legs a couple days ago but there is no swelling. -venous duplex negative for DVT -CTA pulmonary was negative for any PE. (7) BPH (benign prostatic hyperplasia): Code(s): N40.0 - Benign prostatic hyperplasia without lower urinary tract symptoms Status: Acute Assessment and Plan: -continue tamsulosin (8) Altered mental status: Code(s): R41.82 - Altered mental status, unspecified Status: Acute Assessment and Plan: - nihss score was 5 and now is a 3. 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 He has some mild residual weakness of the right upper lower extremity. -CT of the brain was negative. However I did order an MRI and consult Neurology. Patient is back at his baseline. -could be related to his UTI as well. MRI brain with chronic encephalomalacia involving the left thalamus and right basal ganglia. Scattered foci of old hemorrhage in the brain. Moderate nonspecific cerebral white matter disease and bone time disease which likely represents chronic small vessel ischemic disease. Plan Hematuria on and off will monitor could be related to underlying UTI. Follow urine culture Subjective Date/time seen: 06/24/25 09:57 Interval history: No overnight events. Feels good. Denies any chest pain or shortness of breath. No more hematuria. Review of Systems Review of Systems: All systems reviewed & are unremarkable except as noted in HPI and below Exam Narrative: GENERAL: Well-appearing, well-nourished, and in no acute distress. HEAD: Normocephalic, atraumatic. EYES: Non injected, non icteric. Left eye nasal hemianopia. No gaze palsy. ENT: Nares clear, no rhinorrhea or epistaxis. Gross auditory acuity intact. NECK: Supple. No meningismus. CHEST: Clear to auscultation. No respiratory distress. HEART: Regular rate and rhythm. ABDOMEN: Soft, nondistended. Nontender, No rigidity or guarding. EXTREMITIES: Normal range of motion. No lower extremity edema. Moving extremities x4. SKIN: Warm, dry, no rash. NEURO: No focal deficits. Alert and oriented. No aphasia. No gross focal deficits Objective Data Vital Signs Vital Signs: Vital Signs - 24 hr 06/23/25 10:00 06/23/25 11:57 06/23/25 12:00 Temperature 98.8 F Pulse Rate 66 68 73 Respiratory Rate 16 Blood Pressure 138/45 L Pulse Oximetry 100 06/23/25 14:00 06/23/25 16:00 06/23/25 16:00 Temperature 98.4 F Pulse Rate 64 67 60 Respiratory Rate 16 Blood Pressure 138/45 L Pulse Oximetry 98 06/23/25 18:00 06/23/25 19:50 06/23/25 20:00 Temperature 98.7 F Pulse Rate 67 65 61 Respiratory Rate 16 Blood Pressure 145/49 H Pulse Oximetry 99 06/23/25 22:00 06/24/25 00:00 06/24/25 00:00 Temperature 98.7 F Pulse Rate 57 L 55 L 54 L Respiratory Rate 16 Blood Pressure 121/42 L Pulse Oximetry 98 06/24/25 02:00 06/24/25 04:00 06/24/25 04:00 Temperature 98.8 F Pulse Rate 51 L 51 L 48 L Respiratory Rate 16 Blood Pressure 133/48 L Pulse Oximetry 99 06/24/25 06:00 06/24/25 08:00 Temperature 97.9 F Pulse Rate 53 L 59 L Respiratory Rate 16 Blood Pressure 152/44 H Pulse Oximetry 99 Intake/Output Intake/Output: Intake & Output 06/21/25 06/22/25 06/23/25 06/24/25 23:59 23:59 23:59 23:59 Intake Total 50 554.4 243 Output Total 200 400 Balance 50 354.4 -157 Meds/Results Medications: Active Medications Generic Name Dose Route Start Last Admin Trade Name Freq PRN Reason Stop Dose Admin Acetaminophen 650 mg 06/23/25 04:16 06/23/25 20:43 Acetaminophen 325 Mg Tablet PO 650 mg Q4H PRN Administration Mild Pain (1-3) or Fever Amlodipine Besylate 10 mg 06/23/25 09:00 06/24/25 08:15 Amlodipine Besylate 10 Mg Tablet BY MOUTH 10 mg DAILY JEANNETTE Administration Aspirin 81 mg 06/24/25 09:00 06/24/25 08:15 Aspirin 81 Mg Enteric Tablet PO 81 mg QAM JEANNETTE Administration Heparin Sodium (Porcine) 4,000 units 06/23/25 00:19 Heparin Sodium 5,000 Units/Ml Vial IV PUSH PRN PRN aPTT less than 55 seconds Heparin Sodium (Porcine) 2,500 units 06/23/25 00:19 Heparin Sodium 5,000 Units/Ml Vial IV PUSH PRN PRN aPTT 55 - 70 seconds Heparin Sodium/Dextrose 25,000 units in 250 mls @ 4 mls/hr 06/23/25 00:20 06/24/25 04:48 Heparin Sodium/D5w 100 Units/Ml IV CONT 400 units/hr .Q24H JEANNETTE 4 mls/hr Protocol Titration 400 UNITS/HR Ceftriaxone Sodium 1 gm/ 50 mls @ 100 mls/hr 06/23/25 09:00 06/24/25 08:16 Sodium Chloride IVPB 100 mls/hr Q24H JEANNETTE Administration Lisinopril 40 mg 06/23/25 09:00 06/24/25 08:15 Lisinopril 20 Mg Tablet PO 40 mg DAILY JEANNETTE Administration Ondansetron HCl 4 mg 06/23/25 04:16 Ondansetron Inj 4 Mg/2 Ml Vial IV PUSH Q4H PRN Nausea Pantoprazole Sodium 40 mg 06/23/25 09:00 06/24/25 08:15 Pantoprazole 40 Mg Tablet PO 40 mg QAM JEANNETTE Administration Perflutren Lipid Microsphere 0 ml 06/23/25 06:53 Perflutren Lipid Microspheres 1.5 Ml Vial Diluted To 10 Ml Total Volume IV PUSH 06/26/25 06:53 ONCE PRN adequate visualization Protocol Rosuvastatin Calcium 40 mg 06/23/25 09:00 06/24/25 08:15 Rosuvastatin 20 Mg Tablet BY MOUTH 40 mg DAILY JEANNETTE Administration Tamsulosin HCl 0.4 mg 06/23/25 09:00 06/24/25 08:15 Tamsulosin Hcl 0.4 Mg Capsule PO 0.4 mg DAILY JEANNETTE Administration Vitamin D 25 mcg 06/23/25 09:00 06/24/25 08:15 Cholecalciferol (Vitamin D3) 25 Mcg (1,000 Units) Tablet PO 25 mcg DAILY JEANNETTE Administration Radiology Results: ITS Impressions Head CT 06/22/25 20:19 IMPRESSION: 1. 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 No acute intracranial process. 2. Age-related changes including mild diffuse volume loss and moderate scattered white matter T2 hypoattenuation consistent with chronic small vessel ischemic disease. 3. Right otomastoiditis effusion. Head/Neck CTA 06/22/25 20:24 IMPRESSION: CTA NECK: 1. No acute findings. CTA HEAD: 1. No acute findings. Chest X-Ray 06/22/25 20:39 IMPRESSION: 1. No acute cardiopulmonary findings given portable technique. Chest/Abdomen/Pelvis CTA 06/23/25 08:15 IMPRESSION: 1. No pulmonary embolus. 2. Small sliding hiatal hernia. 3. Stable 4.9 cm fusiform infrarenal aortic aneurysm. Venous Doppler Study 06/23/25 09:41 Impression: Negative for DVT. Brain MRI 06/24/25 09:11 IMPRESSION: 1. 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 2. Scattered foci of old hemorrhage in the brain. 3. Moderate nonspecific cerebral white matter disease and pontine disease, which likely represents chronic small vessel ischemic disease. Labs Labs: Laboratory Results - last 24 hr 06/23/25 06/23/25 06/24/25 13:35 19:44 02:30 WBC 12.1 H 7.7 RBC 3.70 L 3.55 L Hgb 11.2 L 11.0 L Hct 34.3 L 33.2 L MCV 92.7 93.5 MCH 30.3 31.0 MCHC 32.7 33.1 RDW 15.0 H 14.8 H Plt Count 150 148 L MPV 9.5 9.6 Immature Gran % (Auto) 0.3 0.1 Neut % (Auto) 82.0 H 63.5 Lymph % (Auto) 7.6 L 16.7 L [place] % (Auto) 9.1 H 18.2 H Eos % (Auto) 0.7 1.0 Baso % (Auto) 0.3 0.5 Lymph # (Auto) 0.92 1.29 [place] # (Auto) 1.1 H 1.4 H Eos # (Auto) 0.1 0.1 Baso # (Auto) 0.0 0.0 Abs Immat Gran (auto) 0.04 H 0.01 Absolute Neuts (auto) 9.9 H 4.9 Absolute Nucleated RBC 0.000 0.000 Nucleated RBC % 0.0 0.0 APTT 104.1 H 123.8 H 146.2 H Sodium 134 L 135 L Potassium 4.4 3.9 Chloride 108 H 107 Carbon Dioxide 23 24 Anion Gap 3 L 4 BUN 18 18 Creatinine 1.26 1.32 H Estim Creat Clear Calc 35 34 Estimated GFR 55 L 52 L Glucose 95 83 Calcium 8.2 L 8.2 L Magnesium 2.1 2.3 Total Bilirubin 0.6 0.5 AST 44 40 ALT 21 19 Alkaline Phosphatase 60 68 Total Protein 6.0 L 6.0 L Albumin 2.9 L 2.9 L Triglycerides 49 Cholesterol 113 LDL Cholesterol Direct 34 HDL Direct 64
[2025-06-24 11:11] LABS: Partial Thromboplastin Time 49.2 Seconds (22.3-36.8)
[2025-06-24 18:17] LABS: Partial Thromboplastin Time 38.1 Seconds (22.3-36.8)
[2025-06-24] MEDS: HEPARIN SOD/D5W 100 UNITS/ML 25,000 UNITS/250 ML BAG 7 UNITS IV CONT (18:40)
[2025-06-25] VITALS: BP 167/74; PULSE 75; PULSE 92; RESP 16; TEMP 36.8; O2SAT 99
[2025-06-25] MEDS: ACETAMINOPHEN 325 MG TABLET 650 MG PO ×2 (00:43→10:04)
[2025-06-25 04:00] VITALS: PULSE 71
[2025-06-25 04:34] LABS: Hematocrit 35.1 % (42.0-52.0); Hemoglobin 11.6 g/dL (14.0-18.0); Immature Granulocyte Percent A 0.2 % (0-0.5); Lymphocytes Absolute Auto 1.20 K/mm3 (0.9-3.2); Mean Corpuscular HGB Conc 33.0 g/dl (32-36); Mean Corpuscular Hemoglobin 30.6 pg (26-34); Mean Corpuscular Volume 92.6 fl (80-100); Nucleated Red Blood Cells Absolute Auto 0.000 K/mm3 (0.0-0.012); Nucleated Red Blood Cells Perc 0.0 % (0.0-0.2); Platelet Count Result 174 k/mm3 (150-375); Red Blood Count 3.79 M/mm3 (4.6-6.20); White Blood Count 4.5 K/mm3 (4.5-10.0)
[2025-06-25 05:20] LABS: Alanine Aminotransferase 20 U/L (6-50); Albumin Level 3.2 g/dL (3.5-5.1); Alkaline Phosphatase 68 U/L (38-126); Anion Gap 5 mmol/L (4-12); Aspartate Amino Transferase 45 U/L (17-59); Bilirubin,Total 0.5 mg/dL (0.2-1.3); Blood Urea Nitrogen 15 mg/dL (9-20); Calcium 8.5 mg/dL (8.4-10.2); Carbon Dioxide 22 mmol/L (22-30); Chloride 109 mmol/L (98-107); Estimated CRCL calculation 38 ml/min; Estimated Glomerular Filt Rate 59; Glucose 83 mg/dL (65-110); Potassium 3.9 mmol/L (3.4-5.0); Sodium 136 mmol/L (137-145); Total Protein 6.4 g/dL (6.3-8.2)
[2025-06-25 06:56] LABS: Magnesium 2.3 mg/dL (1.6-2.3)
[2025-06-25 08:00] VITALS: BP 137/44; PULSE 59; PULSE 60; RESP 14; TEMP 36.5; O2SAT 99
[2025-06-25] MEDS: TAMSULOSIN HCL 0.4 MG CAPSULE PO (10:04)
[2025-06-25] MEDS: CHOLECALCIFEROL (VITAMIN D3) 25 MCG (1,000 UNITS) TABLET PO (10:04)
[2025-06-25] MEDS: cefTRIAXone 1 GM in SODIUM CHLORIDE 0.9% IV 50 ML 100 ML IVPB (10:05)
[2025-06-25 12:00] VITALS: PULSE 70
--- NOTE | 2025-06-25 13:13 | P.PNIM_ITS ---
Progress Note: A&P Assessment and Plan (1) Non-ST elevation NE (NSTEMI): Code(s): I21.4 - Non-ST elevation (NSTEMI) myocardial infarction Status: Acute Assessment and Plan: -the patient presented with chest pain and nausea/vomiting. -the initial troponin was found to be negative however serial troponins have increased suggestive of non ST elevation NE -patient's pain is controlled at this moment. -EKG changes show T-wave abnormalities. -patient has been started on heparin drip which will be continued -continues rosuvastatin. Check LDL Add aspirin 81 mg daily received 325 mg x 1 on arrival to the ER -may consider beta-narciso however mildly bradycardic already Echo 06/23/2025: EF 65-70% grade 1 diastolic dysfunction mild aortic stenosis mild aortic regurgitation mild MR mild TR mild pulmonary hypertension Heparin discontinued (2) Hypertension: Qualifiers: Hypertension type: primary hypertension Qualified Code(s): I10 - Essential (primary) hypertension Code(s): I10 - Essential (primary) hypertension Status: Acute Assessment and Plan: -continue with his amlodipine are substitute with formulary -continue with lisinopril but monitor his BMP daily -patient's blood pressure was greatly elevated in the ambulance but has improved since he came to the emergency room. (3) Acute UTI: Code(s): N39.0 - Urinary tract infection, site not specified Status: Acute Assessment and Plan: -the patient was placed on Rocephin. Antibiotic course Pending blood and urine cultures. A patient reports on of hematuria and urinary symptoms Follow urine culture Symptomatic UTI improving with no further hematuria Urine culture with Gram-negative bacilli. (4) Aneurysm of infrarenal abdominal aorta: Code(s): I71.43 - Infrarenal abdominal aortic aneurysm, without rupture Status: Acute Assessment and Plan: -CTA Chest Stat Rad: respiratory motion limits evaluation. No evidence of acute main/ proximal central pulmonary embolism. Cardiomegaly. Bibasilar atelectasis and/or infiltrates. Small hiatal hernia. Distal esophageal mural thickening, inflammation versus under distention. CT Abd & Pelvis Stat Rad: No acute intra-abdominal abnormality. Infrarenal abdominal aortic aneurysm, 4.1 cm with penetrating ulcers. Incompletely evalua rufino on this nondedicated study. Right common iliac artery ectasias, 2.1 cm. No bowel obstruction or inflammation. No hydronephrosis or renal calculus. Urinary bladder wall thickening, nonspecific. Correlate with urinalysis. Hepatic steatosis and hepatomegaly. -his previous aneurysm measurement was 4.9 cm -continue to monitor peripherally (5) Hyperlipidemia: Qualifiers: Hyperlipidemia type: mixed hyperlipidemia Qualified Code(s): E78.2 - Mixed hyperlipidemia Code(s): E78.5 - Hyperlipidemia, unspecified Status: Acute Assessment and Plan: -continue with atorvastatin and monitor liver panel (6) Elevated d-dimer: Code(s): R79.89 - Other specified abnormal findings of blood chemistry Status: Acute Assessment and Plan: -patient's D-dimer was noted to be 5.30. -the patient stated that he did have some pain in his legs a couple days ago but there is no swelling. -venous duplex negative for DVT -CTA pulmonary was negative for any PE. (7) BPH (benign prostatic hyperplasia): Code(s): N40.0 - Benign prostatic hyperplasia without lower urinary tract symptoms Status: Acute Assessment and Plan: -continue tamsulosin (8) Altered mental status: Code(s): R41.82 - Altered mental status, unspecified Status: Acute Assessment and Plan: - nihss score was 5 and now is a 3. 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 He has some mild residual weakness of the right upper lower extremity. -CT of the brain was negative. However I did order an MRI and consult Neurology. Patient is back at his baseline. -could be related to his UTI as well. MRI brain with chronic encephalomalacia involving the left thalamus and right basal ganglia. Scattered foci of old hemorrhage in the brain. Moderate nonspecific cerebral white matter disease and bone time disease which likely represents chronic small vessel ischemic disease. Plan Hematuria on and off will monitor could be related to underlying UTI. Follow urine culture Subjective Date/time seen: 06/25/25 13:13 Interval history: no overnight events. He feels better. Urine is improving. No chest pain or shortness of breath. Heparin drip has been discontinued. Wants to take a shower. Review of Systems Review of Systems: All systems reviewed & are unremarkable except as noted in HPI and below Exam Narrative: GENERAL: Well-appearing, well-nourished, and in no acute distress. HEAD: Normocephalic, atraumatic. EYES: Non injected, non icteric. Left eye nasal hemianopia. No gaze palsy. ENT: Nares clear, no rhinorrhea or epistaxis. Gross auditory acuity intact. NECK: Supple. No meningismus. CHEST: Clear to auscultation. No respiratory distress. HEART: Regular rate and rhythm. ABDOMEN: Soft, nondistended. Nontender, No rigidity or guarding. EXTREMITIES: Normal range of motion. No lower extremity edema. Moving extremities x4. SKIN: Warm, dry, no rash. NEURO: No focal deficits. Alert and oriented. No aphasia. No gross focal deficits Objective Data Vital Signs Vital Signs: Vital Signs - 24 hr 06/24/25 14:00 06/24/25 16:00 06/24/25 16:00 Temperature 98.2 F Pulse Rate 72 90 92 Respiratory Rate 16 Blood Pressure 146/75 H Pulse Oximetry 99 Oxygen Delivery Fraction of Inspired Oxygen 06/24/25 19:54 06/24/25 19:58 06/24/25 20:00 Temperature 98.2 F Pulse Rate 70 65 Respiratory Rate 15 Blood Pressure 154/53 H Pulse Oximetry 98 Oxygen Delivery Room Air Fraction of Inspired Oxygen 06/24/25 21:05 06/24/25 21:42 06/24/25 22:21 Temperature Pulse Rate 136 H 74 Respiratory Rate Blood Pressure Pulse Oximetry 97 Oxygen Delivery Room Air Fraction of Inspired Oxygen 21 06/25/25 00:00 06/25/25 00:00 06/25/25 04:00 Temperature 98.2 F Pulse Rate 92 75 71 Respiratory Rate 16 Blood Pressure 167/74 H Pulse Oximetry 99 Oxygen Delivery Fraction of Inspired Oxygen 06/25/25 08:00 Temperature 97.7 F Pulse Rate 59 L Respiratory Rate 14 Blood Pressure 137/44 L Pulse Oximetry 99 Oxygen Delivery Fraction of Inspired Oxygen Intake/Output Intake/Output: Intake & Output 06/22/25 06/23/25 06/24/25 06/25/25 23:59 23:59 23:59 23:59 Intake Total 50 554.4 1188.5 490 Output Total 200 1200 1050 Balance 50 354.4 -11.5 -560 Meds/Results Medications: Active Medications Generic Name Dose Route Start Last Admin Trade Name Freq PRN Reason Stop Dose Admin Acetaminophen 650 mg 06/23/25 04:16 06/25/25 10:04 Acetaminophen 325 Mg Tablet PO 650 mg Q4H PRN Administration Mild Pain (1-3) or Fever Amlodipine Besylate 10 mg 06/23/25 09:00 06/25/25 10:04 Amlodipine Besylate 10 Mg Tablet BY MOUTH 10 mg DAILY JEANNETTE Administration Aspirin 81 mg 06/24/25 09:00 06/25/25 10:05 Aspirin 81 Mg Enteric Tablet PO Not Given QAM JEANENTTE Ceftriaxone Sodium 1 gm/ 50 mls @ 100 mls/hr 06/23/25 09:00 06/25/25 10:05 Sodium Chloride IVPB 100 mls/hr Q24H JEANNETTE Administration Lisinopril 40 mg 06/23/25 09:00 06/25/25 10:05 Lisinopril 20 Mg Tablet PO Not Given DAILY [facility] Ondansetron HCl 4 mg 06/23/25 04:16 Ondansetron Inj 4 Mg/2 Ml Vial IV PUSH Q4H PRN Nausea Pantoprazole Sodium 40 mg 06/23/25 09:00 06/25/25 10:06 Pantoprazole 40 Mg Tablet PO Not Given QAM [facility] Perflutren Lipid Microsphere 0 ml 06/23/25 06:53 Perflutren Lipid Microspheres 1.5 Ml Vial Diluted To 10 Ml Total Volume IV PUSH 06/26/25 06:53 ONCE PRN adequate visualization Protocol Rosuvastatin Calcium 40 mg 06/23/25 09:00 06/25/25 10:06 Rosuvastatin 20 Mg Tablet BY MOUTH Not Given DAILY [facility] Tamsulosin HCl 0.4 mg 06/23/25 09:00 06/25/25 10:04 Tamsulosin Hcl 0.4 Mg Capsule PO 0.4 mg DAILY JEANNETTE Administration Vitamin D 25 mcg 06/23/25 09:00 06/25/25 10:04 Cholecalciferol (Vitamin D3) 25 Mcg (1,000 Units) Tablet PO 25 mcg DAILY JEANNETTE Administration Radiology Results: ITS Impressions Head CT 06/22/25 20:19 IMPRESSION: 1. 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 No acute intracranial process. 2. Age-related changes including mild diffuse volume loss and moderate scattered white matter T2 hypoattenuation consistent with chronic small vessel ischemic disease. 3. Right otomastoiditis effusion. Head/Neck CTA 06/22/25 20:24 IMPRESSION: CTA NECK: 1. No acute findings. CTA HEAD: 1. No acute findings. Chest X-Ray 06/22/25 20:39 IMPRESSION: 1. No acute cardiopulmonary findings given portable technique. Chest/Abdomen/Pelvis CTA 06/23/25 08:15 IMPRESSION: 1. No pulmonary embolus. 2. Small sliding hiatal hernia. 3. Stable 4.9 cm fusiform infrarenal aortic aneurysm. Venous Doppler Study 06/23/25 09:41 Impression: Negative for DVT. Brain MRI 06/24/25 09:11 IMPRESSION: 1. 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 2. Scattered foci of old hemorrhage in the brain. 3. Moderate nonspecific cerebral white matter disease and pontine disease, which likely represents chronic small vessel ischemic disease. Labs Labs: Laboratory Results - last 24 hr 06/24/25 06/25/25 17:55 04:03 WBC 4.5 RBC 3.79 L Hgb 11.6 L Hct 35.1 L MCV 92.6 MCH 30.6 MCHC 33.0 RDW 14.5 Plt Count 174 MPV 9.8 Immature Gran % (Auto) 0.2 Neut % (Auto) 40.8 L Lymph % (Auto) 26.7 [place] % (Auto) 28.5 H Eos % (Auto) 3.1 Baso % (Auto) 0.7 Lymph # (Auto) 1.20 [place] # (Auto) 1.3 H Eos # (Auto) 0.1 Baso # (Auto) 0.0 Abs Immat Gran (auto) 0.01 Absolute Neuts (auto) 1.8 Absolute Nucleated RBC 0.000 Nucleated RBC % 0.0 APTT 38.1 H Sodium 136 L Potassium 3.9 Chloride 109 H Carbon Dioxide 22 Anion Gap 5 BUN 15 Creatinine 1.18 Estim Creat Clear Calc 38 Estimated GFR 59 Glucose 83 Calcium 8.5 Magnesium 2.3 Total Bilirubin 0.5 AST 45 ALT 20 Alkaline Phosphatase 68 Total Protein 6.4 Albumin 3.2 L
[2025-06-25 16:00] VITALS: BP 138/47; PULSE 58; PULSE 65; RESP 15; TEMP 37; O2SAT 98
[2025-06-25 20:11] VITALS: BP 149/57; PULSE 70; RESP 20; TEMP 36.7; O2SAT 100
[2025-06-26 06:23] VITALS: BP 166/49; PULSE 63; RESP 20; TEMP 36.6; O2SAT 100
[2025-06-26] MEDS: ROSUVASTATIN 20 MG TABLET 40 MG BY MOUTH (10:07)
[2025-06-26] MEDS: CHOLECALCIFEROL (VITAMIN D3) 25 MCG (1,000 UNITS) TABLET PO (10:07)
[2025-06-26] MEDS: ASPIRIN 81 MG ENTERIC TABLET PO (10:07)
[2025-06-26] MEDS: TAMSULOSIN HCL 0.4 MG CAPSULE PO (10:07)
[2025-06-26] MEDS: PANTOPRAZOLE 40 MG TABLET PO (10:08)
[2025-06-26] MEDS: ENOXAPARIN 40 MG/0.4 ML SYRINGE SUB-Q (10:08)
[2025-06-26] MEDS: cefTRIAXone 1 GM in SODIUM CHLORIDE 0.9% IV 50 ML 100 ML IVPB (10:08)
--- NOTE | 2025-06-26 10:54 | WPDNEURCNPN ---
Assessment and Plan Assessment and plan (1) Transient neurological symptoms: Code(s): R29.818 - Other symptoms and signs involving the nervous system Status: Acute Assessment and Plan: At the time of presentation patient today apparently has had some visual difficulties and left facial drooping and speech difficulties and he could not move but eventually this improved. There is a history of previous stroke with residual right-sided weakness which is essentially unchanged at this time. MRI of the brain has been performed which did not show any acute stroke however chronic changes and white matter disease and old hemorrhagic infarct were noted. He is essentially back to his baseline at this time. (2) CVA (cerebral vascular accident): Code(s): I63.9 - Cerebral infarction, unspecified Status: Acute Assessment and Plan: As discussed above he had a CVA fix years ago with residual mild right-sided weakness in including his right face and upper and lower limb. The patient is on aspirin and Crestor 40 mg a day. Latest LDL was 34. (3) Non-ST elevation [place] (NSTEMI): Code(s): I21.4 - Non-ST elevation (NSTEMI) myocardial infarction Status: Acute (4) Abdominal aneurysm: Code(s): I71.40 - Abdominal aortic aneurysm, without rupture, unspecified Status: Acute (5) Hearing loss: Code(s): H91.90 - Unspecified hearing loss, unspecified ear Status: Acute Assessment and Plan: Patient is concerned about hearing loss and also some memory loss. (6) Urinary tract infection in male: Code(s): N39.0 - Urinary tract infection, site not specified Status: Acute Assessment and Plan: The urine culture has shown Gram-negative bacilli. Since there is a history of previous urinary tract infection he should be evaluated by urologist as an outpatient. Plan With regard to the neurological status he is back to his baseline. He should continue the Crestor and aspirin. He is concerned about memory loss I shall be glad to see my office to further evaluation for possible vascular versus degenerative dementia and treat him accordingly. He seems to very well motivated since he is a retired credit or loans officer and states that he has always going to try his best. I reviewed the MRI of the brain as well as CT angiogram of the head and neck other lab data and agree with the management. Consult date: 06/26/25 HPI: Ceferino Hampton is a 85 year old male who presented to emergency room on 06/22/2025 with symptoms of having chest pain and not feeling well. Mention of blurring of the vision and left facial drooping and speech disturbance. The patient however states that he just could not move and he was not feeling well. There is a history of stroke 6 years ago that left him with some right-sided weakness. Although he made a fair recovery but he thinks that he had 25% of the weakness still left. The patient lives with his cousin and is a retired credit or loans officer and also worked in the . On arrival his NIH score 5/24. A CT scan of brain and CT angiogram of the head and neck were performed which did not show any significant abnormalities. Subsequently an MRI of the brain was also performed after admission which shows chronic changes both cerebral hemispheres and white matter changes and old hemorrhage infarct were noted. His troponin level was high was consulted the pre sales architect. Currently he is on Crestor 40 mg a day and aspirin 81 mg a day. Echocardiogram was performed on 06/23/2025 which did not show any significant abnormality. Patient also has some memory problem and it was suspected he may have some underlying vascular dementia. LDL is currently 34. His kidney function and liver enzymes have been normal. CT scan of the abdomen shows a abdominal aortic aneurysm. The patient also feels that his memory and hearing are gradually declining. At this time he denies any headache or chest pain or any specific symptoms that started after he presented to the hospital. At home he has been fairly independent Despite mild weakness on the right side of the body. According to the emergency room note patient also had some vomiting along with chest pain. His blood pressure was 220/80 which subsequently improved to 100 30/60. Serum glucose 111. Patient does not smoke or drink any alcohol. Also his urinalysis abnormal and was suspected of urinary tract infection and started on antibiotics. There is a history of urinary tract infection the past. Patient follows up at the ID and does not have established primary care provider or urologist in this area. The patient has now been cleared by the pre sales architect and he was started initially on Heparin because of the suspicion of non ST elevation myocardial infarction. This has now been stopped. His D-dimer was elevated. CT angiogram of the chest was negative for pulmonary embolus. Venous Doppler study was negative for deep vein thrombosis. The pre sales architect felt that he had demand ischemia without chest pain and leading to mild elevation of cardiac troponins. However echocardiogram did not show any wall motion abnormalities and has normal systolic function. His transient neurological symptoms have completely resolved except he still has residual weakness on the right side as before. Review of Systems Review of Systems: All systems reviewed & are unremarkable except as noted in HPI and below PMFSH Past Medical History Medical History BPH (benign prostatic hyperplasia) Chronic GERD Abdominal aneurysm 4.9 cm on imaging 2022 CVA (cerebral vascular accident) 2015. Right sided residual weakness. Hypertension Surgical History Surgical History (Updated 06/23/25 @ 04:55 by Светлана Davila APRN) History of tonsillectomy and adenoidectomy History of surgery on arm Family History Family History (Updated 06/23/25 @ 04:56 by Светлана Davila APRN) Mother Hypertension Social History Social History Social History: The patient lives with his cousins. 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 Receives care through the [facility] Code status full code Smoking status: Never smoker Alcohol intake: never Substance use: never Substance use type: does not use Lack of Transportation: No Lack of Food: Never True Current Housing: I Have Housing Concerned About Future Housing: No Difficulty Paying Gas/Electric Bills: No Difficulty Paying for Meds: No Currently Unemployed: No Education: High School Diploma/GED Difficulty w/ Childcare or Family Care: No Occupation/Education: retired Sexual Orientation (if Verbalized by the Patient): Straight or Heterosexual Spiritual care concerns: No Agree to blood products: Yes Meds Home Medications and Allergies Home Medications ?Medication ?Instructions ?Recorded ?Confirmed ?Type amlodipine 10 mg BYMOUTH DAILY 04/15/23 06/23/25 History lisinopril 40 mg tablet 40 mg PO DAILY 04/15/23 06/23/25 History cholecalciferol (vitamin D3) 25 25 mcg PO DAILY 08/11/24 06/23/25 History mcg (1,000 unit) capsule omeprazole 20 mg capsule,delayed 20 mg PO DAILY 08/11/24 06/23/25 History release rosuvastatin 40 mg sprinkle capsule 40 mg PO DAILY 08/11/24 06/23/25 History tamsulosin 0.4 mg capsule 0.4 mg PO DAILY 08/11/24 06/23/25 History Allergies Allergy/AdvReac Type Severity Reaction Status Date / Time No Known Allergies Allergy Verified 06/22/25 21:16 Vital Signs Vital Signs - 24 hr 06/25/25 12:00 06/25/25 13:03 06/25/25 16:00 Temperature 98.6 F Pulse Rate 70 65 Respiratory Rate 15 Blood Pressure 138/47 L Pulse Oximetry 98 Oxygen Delivery Room Air 06/25/25 16:00 06/25/25 20:11 06/26/25 06:23 Temperature 98.0 F 97.9 F Pulse Rate 58 L 70 63 Respiratory Rate 20 20 Blood Pressure 149/57 H 166/49 H Pulse Oximetry 100 100 Oxygen Delivery 06/26/25 10:07 Temperature Pulse Rate Respiratory Rate Blood Pressure Pulse Oximetry Oxygen Delivery Room Air Exam Const: General: cooperative, healthy appearing and comfortable HENMT: Head: atraumatic Mouth: Yes oropharynx normal Other: mild right facial weakness is supranuclear pattern. Eyes: Alignment and Position: alignment normal and position normal EOM: EOMs intact bilaterally Other: No visual field loss was noted by confrontation. Neck: Neck: normal visual inspection and supple Other: No carotid bruit. Resp: Effort & Inspection: normal respiratory effort Cardio: Heart sounds: S1 normal heart sound present and S2 normal heart sound present Skin: General skin exam: normal color Neuro: Cranial nerves: Yes CN's II-XII intact bilaterally ( except for mild right facial weakness) and Yes Midline tongue present Cognition (Neuro): normal cognition Speech: normal speech Sensory Exam: normal sensation Coordination: [id number] test normal Other: mild weakness of the right upper and lower limb with loss of rapid alternating movement. Power grade 4 +over 5. He was able to stand up with some difficulty and states that he has been able to go to the bathroom. He has a walker in the room but he does not use a walker at home. Extrem: General: normal to inspection Psych: Appearance: well kempt Mental Status: mental status grossly normal Speech and movement: Normal speech and movement present Affect: normal affect Thought process: Normal thought process present Thought content: Yes Normal thought content present Insight: Good insight present (Psych) Judgement: Good judgement present (Psych) Other: Patient has hearing loss. Results Labs 06/25/25 04:03 06/25/25 04:03
--- NOTE | 2025-06-26 13:03 | PM.DS ---
DS: Admitting Diagnosis Discharge Date 06/26/2025 Admitting Diagnosis chest pain DS: Discharge Diagnosis Discharge Diagnosis (1) Non-ST elevation VT (NSTEMI): Code(s): I21.4 - Non-ST elevation (NSTEMI) myocardial infarction Status: Acute (2) Hypertension: Qualifiers: Hypertension type: primary hypertension Qualified Code(s): I10 - Essential (primary) hypertension Code(s): I10 - Essential (primary) hypertension Status: Acute (3) Acute UTI: Code(s): N39.0 - Urinary tract infection, site not specified Status: Acute (4) Aneurysm of infrarenal abdominal aorta: Code(s): I71.43 - Infrarenal abdominal aortic aneurysm, without rupture Status: Acute (5) Hyperlipidemia: Qualifiers: Hyperlipidemia type: mixed hyperlipidemia Qualified Code(s): E78.2 - Mixed hyperlipidemia Code(s): E78.5 - Hyperlipidemia, unspecified Status: Acute (6) Elevated d-dimer: Code(s): R79.89 - Other specified abnormal findings of blood chemistry Status: Acute (7) BPH (benign prostatic hyperplasia): Code(s): N40.0 - Benign prostatic hyperplasia without lower urinary tract symptoms Status: Acute (8) Altered mental status: Code(s): R41.82 - Altered mental status, unspecified Status: Acute DS: Summary Hospital Course Hospital Course: # Non-ST elevation VT (NSTEMI): -the patient presented with chest pain and nausea/vomiting. -the initial troponin was found to be negative however serial troponins have increased suggestive of non ST elevation VT -patient's pain is controlled at this moment. -EKG changes show T-wave abnormalities. -patient has been started on heparin drip which will be continued -continues rosuvastatin. Check LDL Add aspirin 81 mg daily received 325 mg x 1 on arrival to the ER -may consider beta-narciso however mildly bradycardic already Echo 06/23/2025: EF 65-70% grade 1 diastolic dysfunction mild aortic stenosis mild aortic regurgitation mild MR mild TR mild pulmonary hypertension Heparin discontinued With UTI suspect demand ischemia. Follow-up with cardiology as an outpatient basis. # Hypertension: -continue with his amlodipine are substitute with formulary -continue with lisinopril but monitor his BMP daily -patient's blood pressure was greatly elevated in the ambulance but has improved since he came to the emergency room. # Acute UTI: -the patient was placed on Rocephin. Antibiotic course Pending blood and urine cultures. A patient reports on of hematuria and urinary symptoms Follow urine culture Symptomatic UTI improving with no further hematuria Urine culture with Gram-negative bacilli. will switch to cefdinir at discharge improving on Rocephin. # Aneurysm of infrarenal abdominal aorta: -CTA Chest Stat Rad: respiratory motion limits evaluation. No evidence of acute main/ proximal central pulmonary embolism. Cardiomegaly. Bibasilar atelectasis and/or infiltrates. Small hiatal hernia. Distal esophageal mural thickening, inflammation versus under distention. CT Abd & Pelvis Stat Rad: No acute intra-abdominal abnormality. Infrarenal abdominal aortic aneurysm, 4.1 cm with penetrating ulcers. Incompletely evaluated on this nondedicated study. Right common iliac artery ectasias, 2.1 cm. No bowel obstruction or inflammation. No hydronephrosis or renal calculus. Urinary bladder wall thickening, nonspecific. Correlate with urinalysis. Hepatic steatosis and hepatomegaly. -his previous aneurysm measurement was 4.9 cm -continue to monitor peripherally # Hyperlipidemia: -continue with atorvastatin and monitor liver panel #Elevated d-dimer: -patient's D-dimer was noted to be 5.30. -the patient stated that he did have some pain in his legs a couple days ago but there is no swelling. -venous duplex negative for DVT -CTA pulmonary was negative for any PE. # BPH (benign prostatic hyperplasia): -continue tamsulosin # Altered mental status: - nihss score was 5 and now is a 3. 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 He has some mild residual weakness of the right upper lower extremity. -CT of the brain was negative. However I did order an MRI and consult Neurology. Patient is back at his baseline. -could be related to his UTI as well. MRI brain with chronic encephalomalacia involving the left thalamus and right basal ganglia. Scattered foci of old hemorrhage in the brain. Moderate nonspecific cerebral white matter disease and bone time disease which likely represents chronic small vessel ischemic disease. #Hematuria on and off will monitor could be related to underlying UTI. Follow urine culture Time Spent with Patient Time attestation: Total time spent providing and/or coordinating discharge services: 40 minutes Exam Narrative: GENERAL: Well-appearing, well-nourished, and in no acute distress. HEAD: Normocephalic, atraumatic. EYES: Non injected, non icteric. Left eye nasal hemianopia. No gaze palsy. ENT: Nares clear, no rhinorrhea or epistaxis. Gross auditory acuity intact. NECK: Supple. No meningismus. CHEST: Clear to auscultation. No respiratory distress. HEART: Regular rate and rhythm. ABDOMEN: Soft, nondistended. Nontender, No rigidity or guarding. EXTREMITIES: Normal range of motion. No lower extremity edema. Moving extremities x4. SKIN: Warm, dry, no rash. NEURO: No focal deficits. Alert and oriented. No aphasia. No gross focal deficits DS: Data Data Completed and Pending Completed studies during hospitalization: Exam Type: CA echo doppler color flow Complete two-dimensional, color flow and Doppler transthoracic echocardiogram is performed. Staff Referring Physician: Светлана Davila NP Senior Stock Plan Administrator: Lizet Ho Attending Provider: Jennie Barfield Summary 1. Complete two-dimensional, color flow and Doppler transthoracic echocardiogram is performed. 2. Left ventricular systolic function is normal, estimated at 65-70. 3. There is mildly increased left ventricular wall thickness. 4. The left ventricular diastolic function is grade I diastolic dysfunction. 5. Left atrial chamber dimension is mildly enlarged. 6. There is mild aortic valve calcification. 7. There is mild aortic valve regurgitation. 8. There is mild aortic valve stenosis. MARU 1.6cm2 and mean gradient 11mmHg. 9. There is mild mitral valve regurgitation. 10. There is mild tricuspid valve regurgitation. 11. Mild pulmonary hypertension, estimated pulmonary arterial systolic pressure is 44 mmHg. Left Ventricle Left ventricular chamber dimension is normal. Left ventricular systolic function is normal, estimated at 65-70. There is mildly increased left ventricular wall thickness. Left ventricular septal wall motion is normal. The left ventricular diastolic function is grade I diastolic dysfunction. Right Ventricle Right ventricular chamber dimension is normal. Right ventricular systolic function is normal. Left Atria Left atrial chamber dimension is mildly enlarged. Right Atria Right atrial chamber dimension is normal. Aortic Valve The aortic valve is probable trileaflet. There is no aortic valve sclerosis. There is mild aortic valve stenosis. MARU 1.6cm2 and mean gradient 11mmHg. There is mild aortic valve regurgitation. There is mild aortic valve calcification. Pulmonic Valve The pulmonic valve is normal. There is no pulmonic valve stenosis. There is no pulmonic regurgitation. Mitral Valve The mitral valve has normal leaflets. There is no mitral valve stenosis. There is mild mitral valve regurgitation. Tricuspid Valve The tricuspid valve leaflets are normal. There is no significant tricuspid valve stenosis. There is mild tricuspid valve regurgitation. Mild pulmonary hypertension, estimated pulmonary arterial systolic pressure is 44 mmHg. Pericardium/Pleural The pericardium appears normal. There is no pericardial effusion. Inferior Vena Cava Normal inferior vena cava with <50% collapse upon inspiration consistent with elevated right atrial pressure, 10 mmHg. Aorta The aortic root size at the sinus of Valsalva is normal. The prox ascending aorta size is normal. Labs on day of discharge: Preliminary micro results at discharge 06/23/25 08:22 Blood Culture - Preliminary Blood 06/23/25 06:45 Blood Culture - Preliminary Blood 06/22/25 20:40 - Preliminary Unspecified Urine Gram negative bacilli isolated Imaging Radiologist's impression: ITS Impressions Head CT 06/22/25 20:19 IMPRESSION: 1. 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 No acute intracranial process. 2. Age-related changes including mild diffuse volume loss and moderate scattered white matter T2 hypoattenuation consistent with chronic small vessel ischemic disease. 3. Right otomastoiditis effusion. Head/Neck CTA 06/22/25 20:24 IMPRESSION: CTA NECK: 1. No acute findings. CTA HEAD: 1. No acute findings. Chest X-Ray 06/22/25 20:39 IMPRESSION: 1. No acute cardiopulmonary findings given portable technique. Chest/Abdomen/Pelvis CTA 06/23/25 08:15 IMPRESSION: 1. No pulmonary embolus. 2. Small sliding hiatal hernia. 3. Stable 4.9 cm fusiform infrarenal aortic aneurysm. Venous Doppler Study 06/23/25 09:41 Impression: Negative for DVT. Brain MRI 06/24/25 09:11 IMPRESSION: 1. 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 2. Scattered foci of old hemorrhage in the brain. 3. Moderate nonspecific cerebral white matter disease and pontine disease, which likely represents chronic small vessel ischemic disease. Discharge Plan Discharge Attending physician on discharge: Jose Roberto Wise Consulting providers: Luis Pate; Wilfred Gomez Discharging Clinician: Jose Roberto Wise Anticipated Discharge Date/Time: 06/26/25 13:06 Patient Disposition: Home Activity: as tolerated Diet: heart healthy Patient Instructions: Antibiotic Form, Heart Attack (GEN), Urinary Tract Infection in Men (GEN), Heart Healthy Diet (GEN), Urinary Tract Infection in Older Adults (GEN) Patient Language: German Stand Alone Forms: General Discharge Information Follow-up/Referrals: Luis Pate MD [Physician, Cardiology] - 2 Weeks Nj Dill DO [Primary Care Provider, Internal Medicine] - 1 Week Discharge Medications: New cefdinir 300 mg capsule 300 mg PO Q12H Qty: 6 0RF aspirin 81 mg Tablet,Delayed Release (Dr/Ec) 81 mg PO QAM Qty: 30 0RF Continued rosuvastatin 40 mg capsule, sprinkle 40 mg PO DAILY omeprazole 20 mg capsule,delayed release(DR/EC) 20 mg PO DAILY tamsulosin 0.4 mg capsule 0.4 mg PO DAILY cholecalciferol (vitamin D3) 25 mcg (1,000 unit) capsule 25 mcg PO DAILY lisinopril 40 mg Tablet 40 mg PO DAILY amlodipine 10 mg BYMOUTH DAILY Date of admission: 06/24/25 12:11 Primary Care Provider: Nj Dill Admitting Provider: Jennie Barfield Attending physician on admission: Jennie Barfield Condition: Improved
[2025-06-26 13:15] VITALS: BP 134/47; PULSE 70; RESP 18; TEMP 36.2; O2SAT 99
== END 2025-06-26 15:20 | disposition home or self-care (01) | DRG 689 ==
LOC: ANHED 06-23 04:32 → ANHIMU 06-23 05:03 → ANH2MED 06-26 11:59 → ANHIMU 06-28 11:26
PROVIDERS: Nurse Practitioner; Admitting Provider Internal Medicine; Emergency Provider Student in an Organized Health Care Education/Training Program; PCP Internal Medicine; Visit Provider Internal Medicine
DX: N39.0 Urinary tract infection, site not specified (principal); I21.A1 Myocardial infarction type 2; B96.89 Other specified bacterial agents as the cause of diseases classified elsewhere; E78.2 Mixed hyperlipidemia; R31.9 Hematuria, unspecified; G93.89 Other specified disorders of brain; H53.8 Other visual disturbances; I69.398 Other sequelae of cerebral infarction; I71.43 Infrarenal abdominal aortic aneurysm, without rupture; I10 Essential (primary) hypertension; K21.9 Gastro-esophageal reflux disease without esophagitis; R29.810 Facial weakness; N40.0 Benign prostatic hyperplasia without lower urinary tract symptoms
CPT/HCPCS: 36415; 70450; 70496; 70498; 70553; 71045; 71275; 74177; 80053; 80061; 80143; 80307; 81001; 82077; 83735; 83880; 84484; 85025; 85380; 85610; 85730; 87040; 87086; 87186; 87637; 93005; 93306; 93970; 96365; 96375; 97161; 97165; 99285; A9270; A9577; G0378; J0696; J1644; J1650; J2405; Q9967